=== PATIENT | female | born 1980 | race Caucasian/White ===

== ENCOUNTER 2018-10-23 17:57 | Observation (INO) | payer OTHER ==
[2018-10-23] MEDS ORDERED: ASPIRIN 81 MG CHEWABLE TABLETS PO ONE (18:00)
--- NOTE | 2018-10-23 18:04 | PDOC ---
Rapid Medical Evaluation Chief Complaint: Lightheaded Time Seen by Provider: 10/23/18 17:58 Medical Evaluation: 10/23/18 17:59 c/o chest pain, nausea and dizziness 2 0 minutes prior to arrival. patient reports heaviness in chest with left arm pain. denies OCP use, recent travel, prolonged sitting Pmhx: arrythmia, asthma PE: patient alert ox3. breath sounds clear P; EKG labs chest xray patient to the ER for further maNAGEMENT OF CARE Discharge Disposition - Diagnosis Chest pain Qualifiers: Chest pain type: unspecified Qualified Code(s): R07.9 - Chest pain, unspecified - Referrals - Patient Instructions - Post Discharge Activity
[2018-10-23 18:55] LABS: PH,URINE 6.5 (5.0-8.0); URINE APPEARANCE CLOUDY; URINE BILIRUBIN NEGATIVE (NEGATIVE); URINE COLOR YELLOW; URINE GLUCOSE (UA) NEGATIVE (NEGATIVE); URINE KETONE NEGATIVE (NEGATIVE); URINE LEUK ESTERASE NEGATIVE (NEGATIVE); URINE NITRITE NEGATIVE (NEGATIVE); URINE PROTEIN NEGATIVE (NEGATIVE); URINE UROBILINOGEN 0.2 mg/dL (0.2-1.0)
[2018-10-23 19:29] LABS: ALBUMIN 3.7 g/dl (3.4-5.0); ALK PHOS 82 U/L (45-117); ANION GAP 6 MMOL/L (8-16); BASO % 0.3 % (0-2.0); BILIRUBIN,TOTAL 0.2 mg/dL (0.2-1); BLOOD UREA NITROGEN 12.2 mg/dL (7-18); CALCIUM 9.2 mg/dL (8.5-10.1); CHLORIDE 106 mmol/L (98-107); CO2 27 mmol/L (21-32); CREATININE 0.9 mg/dL (0.55-1.3); GLUCOSE,RANDOM 102 mg/dL (74-106); HEMATOCRIT 40.8 % (32.4-45.2); HEMOGLOBIN 13.8 GM/dL (10.7-15.3); LYMPH % 42.5 % (8-40); MAGNESIUM 2.2 mg/dL (1.8-2.4); MCH 29.1 pg (25.7-33.7); MCHC 33.8 g/dl (32.0-36.0); MEAN PLT VOLUME 7.8 fl (7.5-11.1); NEUT % 49.2 % (42.8-82.8); PLATELET COUNT 354 K/MM3 (134-434); POTASSIUM 3.9 mmol/L (3.5-5.1); RBC 4.75 M/mm3 (3.60-5.2); RDW 13.5 % (11.6-15.6); SGOT/AST 14 U/L (15-37); SGPT/ALT 15 U/L (13-61); SODIUM 139 mmol/L (136-145); TOT PROT 7.3 g/dl (6.4-8.2); WHITE BLOOD COUNT 8.6 K/mm3 (4.0-10.0)
[2018-10-23 19:31] LABS: INR 1.02 (0.83-1.09)
--- NOTE | 2018-10-23 19:31 | PDOC ---
History of Present Illness - General Chief Complaint: Lightheaded Stated Complaint: DIZZY Time Seen by Provider: 10/23/18 17:58 - History of Present Illness Initial Comments: Ms. Ward is a 38 y/o female with PMH significant for arrhythmia (specifics unknown), migraines, asthma, presenting today with vomiting x1 NBNB around noon followed by abdominal tightness, chest tightness that radiates up her neck and to her left arm, migraine-like headache, lightheadedness. Denies pleuritic chest pain. Denies leg swelling. Reports palpitations daily and shortness of breath intermittently both at rest and on exertion. Reports that she recently moved from [place] and is working to [facility]. Was told she needed a stress test but was not able to get it done. Had an echo done over 5 years ago and was told she had problems with blood flow through the heart but is not able to elaborate more. Denies diarrhea, dysuria, hematuria, hematochezia. No fever, no chills. PMH: arrhythmia, migraines, asthma Meds: aspirin, albuterol PRN SurgHx: none FamHx: aunt had MO in late 40s Past History - Past Medical History Allergies/Adverse Reactions: Allergies Allergy/AdvReac Type Severity Reaction Status Date / Time No Known Allergies Allergy Verified 10/23/18 17:59 Home Medications: Ambulatory Orders Albuterol Sulfate [Proair Respiclick] 90 mcg IH PRN PRN 10/23/18 Aspirin [ASA -] 81 mg PO DAILY 10/23/18 Ibuprofen 600 mg PO PRN PRN 10/23/18 COPD: No Psychiatric Problems: Yes (ANXIETY) - Immunization History Immunization Up to Date: Yes - Suicide/Smoking/Psychosocial Hx Smoking History: Current every day smoker Number of Cigarettes Smoked Daily: 2 Information on smoking cessation initiated: No Hx Alcohol Use: No Drug/Substance Use Hx: No Review of Systems - Review of Systems Comments:: GENERAL/CONSTITUTIONAL: No fever or chills. No weakness._ HEAD, EYES, EARS, NOSE AND THROAT: No change in vision. No change in hearing. No sore throat._ CARDIOVASCULAR: Reports chest tightness and shortness of breath. RESPIRATORY: Denies cough, hemoptysis_ GASTROINTESTINAL: Reports nausea and vomiting. Denies diarrhea/constipation. GENITOURINARY: No dysuria, frequency, or change in urination._ MUSCULOSKELETAL: No joint or muscle swelling or pain. Reports neck pain. SKIN: No rash_ NEUROLOGIC: Reports headache and lightheadedness. No vertigo, loss of consciousness, or change in strength/sensation. ENDOCRINE: No increased thirst. No abnormal weight change. HEMATOLOGIC/LYMPHATIC: No anemia, easy bleeding, or history of blood clots._ ALLERGIC/IMMUNOLOGIC: No hives or skin allergy._ *Physical Exam - Vital Signs Last Vital Signs Temp Pulse Resp BP Pulse Ox 98.6 F 91 H 17 121/62 97 10/23/18 18:00 10/23/18 18:00 10/23/18 18:00 10/23/18 18:00 10/23/18 18:00 - Physical Exam Comments: GENERAL: Awake, alert, and oriented to person/place/time, in no acute distress. HEAD: No signs of trauma, normocephalic, atraumatic. EYES: PERRLA, EOMI, sclera anicteric, conjunctiva clear. ENT: Hearing grossly normal, nares patent, oropharynx clear without exudates. No uvular deviation. Moist mucosa. NECK: Normal ROM, supple, no lymphadenopathy, JVD, or masses. LUNGS: No distress, speaks in full sentences, clear to auscultation bilaterally. HEART: regular rate, normal S1 and S2, peripheral pulses normal and equal bilaterally._ ABDOMEN: Soft, nontender, normoactive bowel sounds. No guarding, no rebound. No masses_ EXTREMITIES: Normal inspection, Normal range of motion, no edema. No clubbing or cyanosis_ NEUROLOGICAL: Cranial nerves II through XII grossly intact. Normal speech, normal gait, no focal sensorimotor deficits _ SKIN: Warm, Dry, normal turgor, no rashes or lesions noted. 10/23/18 20:36 Heart Score/ECG Review - History History: Slightly suspicious - Electrocardiogram EKG: Normal - Age Age: </= 45 - Risk Factors Risk Factors Heart Score: Yes Smoking History, Yes Positive family hx of cardiac disease Based on the list above the patient has:: 1-2 risk factors - Troponin Troponin: </= normal limit - Score Heart Score - Total: 1 ED Treatment Course - LABORATORY CBC & Chemistry Diagram: 10/24/18 05:38 10/24/18 05:38 - ADDITIONAL ORDERS Additional order review: Laboratory Results 10/23/18 10/23/18 10/23/18 18:34 18:34 18:34 Sodium 139 Potassium 3.9 Chloride 106 Carbon Dioxide 27 Anion Gap 6 L BUN 12.2 Creatinine 0.9 Est GFR (CKD-EPI)AfAm 92.70 Est GFR (CKD-EPI)NonAf 79.98 Random Glucose 102 Calcium 9.2 Magnesium 2.2 Total Bilirubin 0.2 AST 14 L ALT 15 Alkaline Phosphatase 82 Creatine Kinase 67 Troponin I < 0.02 Total Protein 7.3 Albumin 3.7 Urine Color Yellow Urine Appearance Cloudy Urine pH 6.5 Ur Specific [place] 1.007 L Urine Protein Negative Urine Glucose (UA) Negative Urine Ketones Negative Urine Blood Negative Urine Nitrite Negative Urine Bilirubin Negative Urine Urobilinogen 0.2 Ur Leukocyte Esterase Negative Urine HCG, Qual Negative Medical Decision Making - Medical Decision Making 38F with hx of arrhythmia, asthma, migraines. Today had chest tightness, abdominal tightness, vomiting x1 NBNB, followed by lightheadedness and headache. shortness of breath at rest/on exertion and palpitations intermittently at baseline Plan: CBC, CMP, UA, trop, EKG, CXR. Will give aspirin and fluids. Plan to admit. 10/23/18 20:09 EKG shows NSR, 79 bpm, LVH, no ST elevation/depression, QTc 440. CXR shows no acute intrathoracic process. Trops negative. 10/23/18 21:02 Discussed with the hospitalist who agrees to admit this patient for admission. \ *DC/Admit/Observation/Transfer Diagnosis at time of Disposition: Chest pain Qualifiers: Chest pain type: unspecified Qualified Code(s): R07.9 - Chest pain, unspecified - Discharge Dispostion Condition at time of disposition: Good - Referrals - Patient Instructions - Post Discharge Activity
[2018-10-23] MEDS ORDERED: SODIUM CHLORIDE 1,000 ML IV STA ×2 (19:48→23:58)
[2018-10-23] MEDS ORDERED: ASPIRIN 81 MG CHEWABLE TABLETS ONE (20:06)
[2018-10-23] MEDS ORDERED: RANITIDINE HCL 150 MG TABLET (FP) PO ONE (20:11)
[2018-10-23] MEDS ORDERED: RANITIDINE HCL 150 MG TABLET (FP) ONE (20:18)
--- NOTE | 2018-10-23 20:19 | PDOC ---
Documentation entered by Dennis Tmaayo SCRIBE, acting as scribe for Tristin Aceves MD. Tristin Aceves MD: This documentation has been prepared by the Belkis richter Xhesika, SCRIBE, under my direction and personally reviewed by me in its entirety. I confirm that the documentation accurately reflects all work, treatment, procedures, and medical decision making performed by me. Attending Attestation - Resident Resident Name: Piero Sherwood - ED Attending Attestation I have performed the following: I have examined & evaluated the patient, The case was reviewed & discussed with the resident, I agree w/resident's findings & plan, Exceptions are as noted - HPI HPI: 10/23/18 20:12 The patient is a 38 year old female with a significant PMH of arrhythmia, migraines and asthma who presents to the emergency department with 1 episode of nbnb vomiting after eating lunch. Patient states her symptoms are associated with nausea, lightheadedness, abdominal discomfort, chest tightness and non- radiating left arm pain. Patient states she endorses SOB intermittently at rest and on exertion. Patient reports she intermittently has been endorsing these symptoms for a couple of months. 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 Patient denies any recent travel or long car rides. The patient denies fever, chills, cough, diarrhea and constipation. Denies dysuria, frequency, urgency and hematuria. Allergies: NKDA - Physicial Exam PE: 10/23/18 22:09 Well appearing, NAD, AOx3 Normal WOB RRR, no mrg NFD Agree with detailed exam as documented by resident - Medical Decision Making 10/23/18 22:09 Patient has a hx of arrhythmia, she is not aware of the specific type of arrhythmia Here c/o acutely of nausea, chest heaviness and a recent increase in episodes of self-limited dyspnea and palpitations f/u labs, ekg, cxr admit for monitoring/eval
--- NOTE | 2018-10-23 21:23 | PN ---
Teaching Attending Note Name of Resident: Katerin Barboza ATTENDING PHYSICIAN STATEMENT I saw and evaluated the patient. I reviewed the resident's note and discussed the case with the resident. I agree with the resident's findings and plan as documented. SUBJECTIVE: Patient is a 38 year old woman with a PMH of Unspecified arrhythmia, Tobacco use , Migraines and Asthma who presents to the ER with 1 episode of vomiting after eating lunch. Patient states her symptoms are associated with nausea, lightheadedness, abdominal discomfort, chest tightness and non-radiating left arm pain. Patient states she has SOB intermittently at rest and on exertion. Patient reports she has been having these symptoms intermittently for a couple of months. Does use Ibuprofen often for her headaches. Patient states she had an abnormal ECHO 5 years ago. 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 Patient denies any recent travel or long car rides. The patient denies fever, chills, cough, diarrhea and constipation. Denies dysuria, frequency, urgency and hematuria. Her LMP ended on October 13, 2018. She has a FH of premature CAD, HLD, DM, HTN, gastric and ovarian cancer. OBJECTIVE: Alert Vital Signs Period Temp Pulse Resp BP Sys/[place] Pulse Ox Last 24 Hr 98.2 F-98.6 F 65-91 17-19 103-121/61-73 97-100 HEENT: No Jaundice, eye redness or discharge, PERRLA, EOMI. Normocephalic, atraumatic. External ears are normal and hearing is grossly intact. No nasal discharge. Neck: Supple, nontender. No palpable adenopathy or thyromegaly. No JVD Chest: Good effort. Clear to auscultation and percussion. Heart: Regular. No S3, rub or murmur Abdomen: Not distended, soft, nontender and no HSM. No rebound or guarding. Normal bowel sounds. Ext: Peripheral pulses intact. No leg edema. Skin: Warm and dry. No petechiae, rash or ecchymosis. Neuro: Alert. Oriented x3. CN 2-12 grossly intact. Sensation grossly intact in all four extremities and DTR are symmetric. Psych: Appropriate mood and affect. Good insight. Home Medications Medication Instructions Recorded Albuterol Sulfate [Proair 90 mcg IH PRN PRN 10/23/18 Respiclick] Aspirin [ASA -] 81 mg PO DAILY 10/23/18 Ibuprofen 600 mg PO PRN PRN 10/23/18 Abnormal Lab Results 10/23/18 10/23/18 10/23/18 18:34 18:34 18:34 Lymphocytes % 42.5 H Anion Gap 6 L AST 14 L Ur Specific [place] 1.007 L ASSESSMENT AND PLAN: 1. Chest pain - Pain is atypical, but she has risk factors for CAD. EKG shows NSR with LVH, T wave inversion in aVF, V1 and V2. Initial troponin is negative and there is no acute abnormality on CXR. Will admit to telemetry to rule out ACS, get ECHO, fasting lipids, TSH and consult cardiology. May need outpatient cardiac monitoring to capture the unspecified arrhythmia she says was noted in the past. Symptoms may also signal gastritis associated with NSAID use. Will get abdominal sonogram and treat with protonix. Patient counseled to avoid NSAIDS. Consult GI for possible EGD. Continue comprehensive care of all her comorbid conditions including Duoneb PRN for ashtma. 2. Tobacco Use Counseled on risks associated with tobacco use. We will provide patient all the necessary assistance to facilitate smoking cessation and prescribe Nicotine patch. 3. Obesity Counseled on the risks associated with obesity. Will provide patient all the necessary assistance, counseling and positive reinforcement to facilitate weight loss. Consult underground heavy equipment operator. 4. DVT prophylaxis - Lovenox 40 mg SQ q 24 hours. 5. Advance directives - Full code
[2018-10-23 22:30] VITALS: BMI 33.1
--- NOTE | 2018-10-23 23:19 | HP ---
CHIEF COMPLAINT: chest pain/dizziness/lightheadedness PCP: Dr. Eleni Hicks HISTORY OF PRESENT ILLNESS: Shirlene Ward is a 38 year old female with a past medical history of migraines, asthma, anxiety, unknown arrhythmia type, ovarian cyst, transient HLD during who presented today after an episode of dizziness and lightheadedness while the patient was eating lunch. She felt weak and sat down at which point she felt nauseous and had one episode of non-bloody non-bilious vomiting. She stated that afterwards she had left sided chest pain with radiation to the shoulder and epigastric abdominal pain. Stated that she had total body weakness and headaches and came to the ED for further evaluation. She has had a previous episode similar to the current episode 3 months prior which was less pronounced and she attributed to recent stresses. The patient noted that she has recently started smoking again after a long abstinence and has not been eating well for several months but has had adequate fluid intake. Has frequent headaches which she attributes to her known history of migraines, however current headache is unlike her regular migraines. Takes ibuprofen 600mg 2 times a month for headaches and states that she tries to limit NSAID intake due to gastric upset. Stated that sometimes she wakes up and feels palpitations and short of breath and is currently being worked up for [facility] outpatient. Denies fever, chills, shortness of breath, back pain, peripheral edema, numbness , tingling, focal weakness, visual changes, tinnitus, dysphagia. Recently moved back to [place] from [place] and is reestablishing care. Unsure of what her previous arrhythmia is. Records are located at current PCP office. LMP: ended October 13 HCG negative ER course was notable for: (1) EKG T wave inversion in leads III, V1, V2, NSR, QTc 440 (2) Orthostatics supine 113/61 HR 63 sitting 108/51 HR 70 standing 65/39 HR 76 repeat sitting 120/59 standing 100/69 (3) given aspirin 162mg, Zantac 300mg, NS1L Recent Travel: denies PAST MEDICAL HISTORY: as above PAST SURGICAL HISTORY: denies Social History: Smokin cigarettes per day Alcohol: denies Drugs: denies Lives with son Family History: Mother- gastric cancer Sister- ovarian cancer Aunt- [place] in 40s Aunt- DM, HTN, HLD Allergies No Known Allergies Allergy (Verified 10/23/18 17:59) HOME MEDICATIONS: Home Medications Medication Instructions Recorded Albuterol Sulfate [Proair 90 mcg IH PRN PRN 10/23/18 Respiclick] Aspirin [ASA -] 81 mg PO DAILY 10/23/18 Ibuprofen 600 mg PO PRN PRN 10/23/18 REVIEW OF SYSTEMS CONSTITUTIONAL: generalized weakness Absent: fever, chills, diaphoresis, , malaise, loss of appetite, weight change HEENT: Absent: rhinorrhea, nasal congestion, throat pain, throat swelling, difficulty swallowing, visual changes CARDIOVASCULAR: chest pain, lightheadedness Absent: syncope, palpitations, irregular heart rate, peripheral edema RESPIRATORY: Absent: cough, shortness of breath, dyspnea with exertion, orthopnea, wheezing, stridor, GASTROINTESTINAL: abdominal pain, nausea, vomiting Absent: abdominal distension, diarrhea, constipation, melena, hematochezia GENITOURINARY: Absent: dysuria, frequency, urgency, hesitancy, hematuria, flank pain, MUSCULOSKELETAL: Absent: myalgia, arthralgia, joint swelling, back pain, SKIN: Absent: rash, itching, pallor HEMATOLOGIC/IMMUNOLOGIC: Absent: easy bleeding, easy bruising, lymphadenopathy, frequent infections ENDOCRINE: Absent: unexplained weight gain, unexplained weight loss, heat intolerance, cold intolerance NEUROLOGIC: headache, dizziness Absent: focal weakness or paresthesias, unsteady gait, seizure, mental status changes, bladder or bowel incontinence PSYCHIATRIC: anxiety Absent: depression, suicidal or homicidal ideation, hallucinations. PHYSICAL EXAMINATION Vital Signs - 24 hr 10/23/18 10/23/18 10/23/18 18:00 19:40 20:07 Temperature 98.6 F 98.4 F 98.6 F Pulse Rate 91 H 65 Pulse Rate [ 76 Left Apical] Respiratory 17 19 18 Rate Blood Pressure 121/62 113/61 Blood Pressure 103/73 [Right Arm] O2 Sat by Pulse 97 100 97 Oximetry (%) 10/23/18 21:21 Temperature 98.2 F Pulse Rate Pulse Rate [ 70 Left Apical] Respiratory 18 Rate Blood Pressure Blood Pressure 120/68 [Right Arm] O2 Sat by Pulse 100 Oximetry (%) GENERAL: Awake, alert, and fully oriented, in no acute distress. HEAD: Normal with no signs of trauma. EYES: Pupils equal, round and reactive to light, extraocular movements intact, sclera anicteric, conjunctiva clear. EARS, NOSE, THROAT: Oropharynx clear without exudates. Moist mucous membranes. NECK: Normal range of motion, supple without lymphadenopathy, JVD, or masses. LUNGS: Breath sounds equal, clear to auscultation bilaterally. No wheezes, and no crackles. No accessory muscle use. HEART: Regular rate and rhythm, normal S1 and S2 without murmur, rub or gallop. ABDOMEN: Soft, nontender, not distended, normoactive bowel sounds, no guarding, no rebound, no masses. MUSCULOSKELETAL: Normal range of motion at all joints. No bony deformities or tenderness. UPPER EXTREMITIES: 2+ pulses, warm, well-perfused. No cyanosis. No clubbing. No peripheral edema. LOWER EXTREMITIES: 2+ pulses, warm, well-perfused. No calf tenderness. No peripheral edema. NEUROLOGICAL: Cranial nerves II-XII intact. Muscle strength 5/5 bilaterally upper and lower extremities.. PSYCHIATRIC: Cooperative. Good eye contact. Appropriate mood and affect. SKIN: Warm, dry, normal turgor, no rashes or lesions noted, normal capillary refill. Laboratory Results - last 24 hr 10/23/18 10/23/18 10/23/18 18:34 18:34 18:34 WBC 8.6 RBC 4.75 Hgb 13.8 Hct 40.8 MCV 86.0 MCH 29.1 MCHC 33.8 RDW 13.5 Plt Count 354 MPV 7.8 Absolute Neuts (auto) 4.2 Neutrophils % 49.2 Lymphocytes % 42.5 H Monocytes % 6.0 Eosinophils % 2.0 Basophils % 0.3 Nucleated RBC % 0 PT with INR INR Sodium 139 Potassium 3.9 Chloride 106 Carbon Dioxide 27 Anion Gap 6 L BUN 12.2 Creatinine 0.9 Est GFR (CKD-EPI)AfAm 92.70 Est GFR (CKD-EPI)NonAf 79.98 Random Glucose 102 Calcium 9.2 Magnesium 2.2 Total Bilirubin 0.2 AST 14 L ALT 15 Alkaline Phosphatase 82 Creatine Kinase 67 Troponin I < 0.02 Total Protein 7.3 Albumin 3.7 Urine Color Urine Appearance Urine pH Ur Specific [place] Urine Protein Urine Glucose (UA) Urine Ketones Urine Blood Urine Nitrite Urine Bilirubin Urine Urobilinogen Ur Leukocyte Esterase Urine HCG, Qual Negative 10/23/18 10/23/18 18:34 18:34 WBC RBC Hgb Hct MCV MCH MCHC RDW Plt Count MPV Absolute Neuts (auto) Neutrophils % Lymphocytes % Monocytes % Eosinophils % Basophils % Nucleated RBC % PT with INR 12.00 INR 1.02 Sodium Potassium Chloride Carbon Dioxide Anion Gap BUN Creatinine Est GFR (CKD-EPI)AfAm Est GFR (CKD-EPI)NonAf Random Glucose Calcium Magnesium Total Bilirubin AST ALT Alkaline Phosphatase Creatine Kinase Troponin I Total Protein Albumin Urine Color Yellow Urine Appearance Cloudy Urine pH 6.5 Ur Specific [place] 1.007 L Urine Protein Negative Urine Glucose (UA) Negative Urine Ketones Negative Urine Blood Negative Urine Nitrite Negative Urine Bilirubin Negative Urine Urobilinogen 0.2 Ur Leukocyte Esterase Negative Urine HCG, Qual EKG--> NSR, T wave inversion in leads III, V1, V2, QTc 440 ASSESSMENT/PLAN: Shirlene Ward is a 38 year old female with a past medical history of migraines, asthma, anxiety, unknown arrhythmia type, ovarian cyst, transient HLD during admitted under observation for ACS rule out and dizziness symptoms. Chest Pain/Dizziness Abdominal Pain Asthma Tobacco Use Chest Pain/Dizziness - atypical chest pain in setting of poor oral intake, NSAID use, however has risk factors and strong family and social history - 2 negative troponins, repeat in morning - A1c - lipid profile - TSH - Echo - carotid dopplers - cardiology consultation - may need Holter monitoring with hx of unknown arrhythmia - adequate outpatient f/u for atypical chest pain - orthostatics positive, additional bolus 1L NS given, encourage PO intake Abdominal Pain - in setting of family history, NSAID use, smoking has high risks for ulcers and other gastric pathology - given Zantac in ED - Abd U/s - GI consult, evaluate need for EGD inpatient vs outpatient - Protonix 20mg PO - avoid NSAIDS, can use Tylenol and Reglan for migraines Asthma - Duoneb prn Tobacco Use - encourage abstinence in setting of medical comorbidities - nicotine patch prn FEN - 1L bolus given on floor, can hold off on additional fluids, reevaluate if any vital sign derangements present - continue to monitor for electrolytes abnormalities and replete as necessary - Regular diet Prophylaxis - Lovenox 40mg subq daily - early ambulation Code - full code ARMIDA NAYLOR DO - PGY-1 Visit type - Emergency Visit Emergency Visit: Yes ED Registration Date: 10/23/18 Care time: The patient presented to the Emergency Department on the above date and was hospitalized for further evaluation of their emergent condition. - New Patient This patient is new to me today: Yes Date on this admission: 10/24/18 - Critical Care Critical Care patient: No
[2018-10-23] MEDS ORDERED: ALBUTEROL SO4 2.5/IPRATROPIUM 0.5 INH SOL 3 ML VIAL.NEB. NEB PRN ×2 (23:26→23:30)
[2018-10-24] MEDS: NICOTINE 7 MG/24 HOURS TOPICAL PATCH TD SCH ×3 (02:26→14:54)
[2018-10-24 08:06] LABS: HEMATOCRIT 36.9 % (32.4-45.2); HEMOGLOBIN 12.8 GM/dL (10.7-15.3); MCH 29.7 pg (25.7-33.7); MCHC 34.5 g/dl (32.0-36.0); MEAN CELL VOLUME 85.9 fl (80-96); MEAN PLT VOLUME 7.7 fl (7.5-11.1); PLATELET COUNT 335 K/MM3 (134-434); RDW 13.3 % (11.6-15.6); WHITE BLOOD COUNT 6.6 K/mm3 (4.0-10.0)
--- NOTE | 2018-10-24 08:18 | PN ---
Physical Exam: SUBJECTIVE: Patient seen and examined at bedside. Pt feels well at this time. OBJECTIVE: Vital Signs Period Temp Pulse Resp BP Sys/Rutherford Pulse Ox Last 24 Hr 97.6 F-98.6 F 59-91 17-19 98-121/57-73 97-100 Gen: Comfortable HEENT: NCAT, EOMI, PERRL Neck: supple, no jvd Cardio: rrr, normal s1s2, no mrg Pulm: cta b/l Abd: soft, nontender, nondistended Ext: no edema, 2+ pulses Laboratory Results - last 24 hr 10/23/18 10/23/18 10/23/18 18:34 18:34 18:34 WBC 8.6 RBC 4.75 Hgb 13.8 Hct 40.8 MCV 86.0 MCH 29.1 MCHC 33.8 RDW 13.5 Plt Count 354 MPV 7.8 Absolute Neuts (auto) 4.2 Neutrophils % 49.2 Lymphocytes % 42.5 H Monocytes % 6.0 Eosinophils % 2.0 Basophils % 0.3 Nucleated RBC % 0 PT with INR INR Sodium 139 Potassium 3.9 Chloride 106 Carbon Dioxide 27 Anion Gap 6 L BUN 12.2 Creatinine 0.9 Est GFR (CKD-EPI)AfAm 92.70 Est GFR (CKD-EPI)NonAf 79.98 Random Glucose 102 Hemoglobin A1c % Calcium 9.2 Magnesium 2.2 Total Bilirubin 0.2 AST 14 L ALT 15 Alkaline Phosphatase 82 Creatine Kinase 67 Troponin I < 0.02 Total Protein 7.3 Albumin 3.7 Urine Color Urine Appearance Urine pH Ur Specific [place] Urine Protein Urine Glucose (UA) Urine Ketones Urine Blood Urine Nitrite Urine Bilirubin Urine Urobilinogen Ur Leukocyte Esterase Urine HCG, Qual Negative 10/23/18 10/23/18 10/23/18 18:34 18:34 23:00 WBC RBC Hgb Hct MCV MCH MCHC RDW Plt Count MPV Absolute Neuts (auto) Neutrophils % Lymphocytes % Monocytes % Eosinophils % Basophils % Nucleated RBC % PT with INR 12.00 INR 1.02 Sodium Potassium Chloride Carbon Dioxide Anion Gap BUN Creatinine Est GFR (CKD-EPI)AfAm Est GFR (CKD-EPI)NonAf Random Glucose Hemoglobin A1c % Calcium Magnesium Total Bilirubin AST ALT Alkaline Phosphatase Creatine Kinase Troponin I < 0.02 Total Protein Albumin Urine Color Yellow Urine Appearance Cloudy Urine pH 6.5 Ur Specific [place] 1.007 L Urine Protein Negative Urine Glucose (UA) Negative Urine Ketones Negative Urine Blood Negative Urine Nitrite Negative Urine Bilirubin Negative Urine Urobilinogen 0.2 Ur Leukocyte Esterase Negative Urine HCG, Qual 10/24/18 05:38 WBC RBC Hgb Hct MCV MCH MCHC RDW Plt Count MPV Absolute Neuts (auto) Neutrophils % Lymphocytes % Monocytes % Eosinophils % Basophils % Nucleated RBC % PT with INR INR Sodium Potassium Chloride Carbon Dioxide Anion Gap BUN Creatinine Est GFR (CKD-EPI)AfAm Est GFR (CKD-EPI)NonAf Random Glucose Hemoglobin A1c % 5.2 Calcium Magnesium Total Bilirubin AST ALT Alkaline Phosphatase Creatine Kinase Troponin I Total Protein Albumin Urine Color Urine Appearance Urine pH Ur Specific [place] Urine Protein Urine Glucose (UA) Urine Ketones Urine Blood Urine Nitrite Urine Bilirubin Urine Urobilinogen Ur Leukocyte Esterase Urine HCG, Qual Active Medications Generic Name Dose Route Start Last Admin Trade Name Freq PRN Reason Stop Dose Admin Albuterol/Ipratropium 1 amp 10/23/18 23:30 Duoneb - NEB RQID PRN SHORT OF BREATH/WHEEZING Enoxaparin Sodium 40 mg 10/24/18 10:00 Lovenox - SQ DAILY [facility] Nicotine 7 mg 10/23/18 23:47 10/24/18 02:26 Nicoderm Patch - TD Not Given DAILY [facility] Pantoprazole Sodium 20 mg 10/24/18 10:00 Protonix - PO DAILY [facility] Active Medications Albuterol/Ipratropium (Duoneb -) 1 amp NEB RQID PRN PRN Reason: SHORT OF BREATH/WHEEZING Enoxaparin Sodium (Lovenox -) 40 mg SQ DAILY [facility] Nicotine (Nicoderm Patch -) 7 mg TD DAILY [facility] Last Admin: 10/24/18 02:26 Dose: Not Given Pantoprazole Sodium (Protonix -) 20 mg PO DAILY [facility] ASSESSMENT/PLAN: Shirlene Ward is a 38 year old female with a past medical history of migraines, asthma, anxiety, unknown arrhythmia type, ovarian cyst, transient HLD during admitted under observation for ACS rule out and dizziness symptoms. #Chest Pain/Dizziness - atypical chest pain in setting of poor oral intake, NSAID use, however has risk factors and strong family and social history - troponins neg x 3 - TSH normal - Echo unremarkable - carotid dopplers normal - cardiology consultation requests records - orthostatics positive, additional bolus 1L NS given, encourage PO intake Abdominal Pain - in setting of family history, NSAID use, smoking has high risks for ulcers and other gastric pathology - given Zantac in ED - Abd U/s result pending - GI consult, evaluate need for EGD inpatient vs outpatient - Protonix 20mg PO - avoid NSAIDS, can use Tylenol and Reglan for migraines Asthma - Duoneb prn Tobacco Use - encourage abstinence in setting of medical comorbidities - nicotine patch prn FEN - 1L bolus given on floor, can hold off on additional fluids, reevaluate if any vital sign derangements present - continue to monitor for electrolytes abnormalities and replete as necessary - Regular diet Prophylaxis - Lovenox 40mg subq daily - early ambulation Code - full code Visit type - Emergency Visit Emergency Visit: No - New Patient This patient is new to me today: No - Critical Care Critical Care patient: No ATTENDING PHYSICIAN STATEMENT I saw and evaluated the patient. I reviewed the resident's note and discussed the case with the resident. I agree with the resident's findings and plan as documented. SUBJECTIVE: OBJECTIVE: ASSESSMENT AND PLAN:
[2018-10-24 08:41] LABS: ALBUMIN 3.3 g/dl (3.4-5.0); BILIRUBIN,TOTAL 0.4 mg/dL (0.2-1); CALCIUM 8.2 mg/dL (8.5-10.1); CREATININE 0.6 mg/dL (0.55-1.3); TOT PROT 6.3 g/dl (6.4-8.2)
[2018-10-24] MEDS ORDERED: REGADENOSON 0.4 MG/5 ML PRE-FILLED SYRINGE IVPUSH ONE ×2 (09:56→10:00)
--- NOTE | 2018-10-24 10:02 | PN ---
Teaching Attending Note Name of Resident: Angel Kaur ATTENDING PHYSICIAN STATEMENT I saw and evaluated the patient. I reviewed the resident's note and discussed the case with the resident. I agree with the resident's findings and plan as documented with exceptions below. SUBJECTIVE: Patient seen and examined, reports left sided migrainous headaches (known prior history). No chest pain, palpitations, dizziness, dyspnea, abdominal pain or vomiting noted. OBJECTIVE: Vital Signs Period Temp Pulse Resp BP Sys/Rutherford Pulse Ox Last 24 Hr 97.6 F-98.6 F 59-91 17-20 98-121/57-73 97-100 Intake & Output 10/21/18 10/22/18 10/23/18 10/24/18 23:59 23:59 23:59 23:59 Intake Total 480 1000 Balance 480 1000 Weight 187 lb 3.2 oz General: lying in bed in no acute distress neck: soft, supple, no JVD Chest: CTAB, no rales or wheezing CVS:S1s2 regular Telemetry: NSR, no events noted Abdomen:soft, obese, NTthroughout Extremities: no edema Home Medications Medication Instructions Recorded Albuterol Sulfate [Proair 90 mcg IH PRN PRN 10/23/18 Respiclick] Aspirin [ASA -] 81 mg PO DAILY 10/23/18 Ibuprofen 600 mg PO PRN PRN 10/23/18 Active Medications Albuterol/Ipratropium (Duoneb -) 1 amp NEB RQID PRN PRN Reason: SHORT OF BREATH/WHEEZING Enoxaparin Sodium (Lovenox -) 40 mg SQ DAILY [facility] Nicotine (Nicoderm Patch -) 7 mg TD DAILY [facility] Last Admin: 10/24/18 02:26 Dose: Not Given Pantoprazole Sodium (Protonix -) 20 mg PO DAILY [facility] Laboratory Results - last 24 hr 10/23/18 10/23/18 10/23/18 18:34 18:34 18:34 WBC 8.6 RBC 4.75 Hgb 13.8 Hct 40.8 MCV 86.0 MCH 29.1 MCHC 33.8 RDW 13.5 Plt Count 354 MPV 7.8 Absolute Neuts (auto) 4.2 Neutrophils % 49.2 Lymphocytes % 42.5 H Monocytes % 6.0 Eosinophils % 2.0 Basophils % 0.3 Nucleated RBC % 0 PT with INR INR Sodium 139 Potassium 3.9 Chloride 106 Carbon Dioxide 27 Anion Gap 6 L BUN 12.2 Creatinine 0.9 Est GFR (CKD-EPI)AfAm 92.70 Est GFR (CKD-EPI)NonAf 79.98 Random Glucose 102 Hemoglobin A1c % Calcium 9.2 Magnesium 2.2 Total Bilirubin 0.2 AST 14 L ALT 15 Alkaline Phosphatase 82 Creatine Kinase 67 Troponin I < 0.02 Total Protein 7.3 Albumin 3.7 Triglycerides Cholesterol Total LDL Cholesterol HDL Cholesterol TSH Urine Color Urine Appearance Urine pH Ur Specific [place] Urine Protein Urine Glucose (UA) Urine Ketones Urine Blood Urine Nitrite Urine Bilirubin Urine Urobilinogen Ur Leukocyte Esterase Urine HCG, Qual Negative 10/23/18 10/23/18 10/23/18 18:34 18:34 23:00 WBC RBC Hgb Hct MCV MCH MCHC RDW Plt Count MPV Absolute Neuts (auto) Neutrophils % Lymphocytes % Monocytes % Eosinophils % Basophils % Nucleated RBC % PT with INR 12.00 INR 1.02 Sodium Potassium Chloride Carbon Dioxide Anion Gap BUN Creatinine Est GFR (CKD-EPI)AfAm Est GFR (CKD-EPI)NonAf Random Glucose Hemoglobin A1c % Calcium Magnesium Total Bilirubin AST ALT Alkaline Phosphatase Creatine Kinase Troponin I < 0.02 Total Protein Albumin Triglycerides Cholesterol Total LDL Cholesterol HDL Cholesterol TSH Urine Color Yellow Urine Appearance Cloudy Urine pH 6.5 Ur Specific [place] 1.007 L Urine Protein Negative Urine Glucose (UA) Negative Urine Ketones Negative Urine Blood Negative Urine Nitrite Negative Urine Bilirubin Negative Urine Urobilinogen 0.2 Ur Leukocyte Esterase Negative Urine HCG, Qual 10/24/18 10/24/18 10/24/18 05:38 05:38 05:38 WBC 6.6 RBC 4.30 Hgb 12.8 Hct 36.9 MCV 85.9 MCH 29.7 MCHC 34.5 RDW 13.3 Plt Count 335 MPV 7.7 Absolute Neuts (auto) Neutrophils % Lymphocytes % Monocytes % Eosinophils % Basophils % Nucleated RBC % PT with INR INR Sodium 140 Potassium 4.0 Chloride 109 H Carbon Dioxide 26 Anion Gap 5 L BUN 12.0 Creatinine 0.6 Est GFR (CKD-EPI)AfAm 132.14 Est GFR (CKD-EPI)NonAf 114.01 Random Glucose 79 Hemoglobin A1c % 5.2 Calcium 8.2 L Magnesium 2.0 Total Bilirubin 0.4 AST 12 L ALT 12 L Alkaline Phosphatase 73 Creatine Kinase Troponin I Total Protein 6.3 L Albumin 3.3 L Triglycerides 99 Cholesterol 152 Total LDL Cholesterol 97 HDL Cholesterol 38 L TSH 3.74 Urine Color Urine Appearance Urine pH Ur Specific [place] Urine Protein Urine Glucose (UA) Urine Ketones Urine Blood Urine Nitrite Urine Bilirubin Urine Urobilinogen Ur Leukocyte Esterase Urine HCG, Qual 10/24/18 05:38 WBC RBC Hgb Hct MCV MCH MCHC RDW Plt Count MPV Absolute Neuts (auto) Neutrophils % Lymphocytes % Monocytes % Eosinophils % Basophils % Nucleated RBC % PT with INR INR Sodium Potassium Chloride Carbon Dioxide Anion Gap BUN Creatinine Est GFR (CKD-EPI)AfAm Est GFR (CKD-EPI)NonAf Random Glucose Hemoglobin A1c % Calcium Magnesium Total Bilirubin AST ALT Alkaline Phosphatase Creatine Kinase Troponin I < 0.02 Total Protein Albumin Triglycerides Cholesterol Total LDL Cholesterol HDL Cholesterol TSH Urine Color Urine Appearance Urine pH Ur Specific [place] Urine Protein Urine Glucose (UA) Urine Ketones Urine Blood Urine Nitrite Urine Bilirubin Urine Urobilinogen Ur Leukocyte Esterase Urine HCG, Qual ASSESSMENT AND PLAN: 38 yof with PMhx of ?arrhythmia, Migrainous headaches, tobaccco use, asthma admitted with episode of abdominal pain, followed by vomiting, dizziness, left sided chest pain radiating to shoulder -Dizziness r/o arrhythmia -Chest pain, r/o cardiac given risk factors -Abdominal pain/Vomiting x 1, ?GERD/PUD in the setting NSAIDs use -Migrainous headaches -Nicotine dependence -Mild intermittent asthma Plan: Patient reports prior h/o ?arrhythmia, reports having holter monitoring x 2 in the past, was told has "arrhythmia" unsure of details, on no medications. TSH noted, follow up 2D echo. Stress test for risk stratification, lipid panel noted. Follow up cardiology input. Patient advised to avoid NSAIDs, PPI for now, Abdominal US. Follow up GI recs, h /h stable. FOBT. Anticipate outpatient follow up if no concerns inhouse. albuterol prn. DVTPPX lovenox Dispo pending above w/u Discussed with patient and nursing.
--- NOTE | 2018-10-24 10:04 | CON.CARD ---
Consult Consult Specialty:: Cardiology Referred by:: Dr. Beck Reason for Consultation:: chest pain - History of Present Illness Chief Complaint: chest pain History of Present Illness: 38F, smoker, w mild intermittent asthma, h/o gestational HTN (resolved) presents to ER for eval for episode substernal CP at rest. Under significant "stress"- pt would not elaborate further. Denies N/V/diaphoresis. Typically, does not have exertional CP. Denies recent prolonged air/car travel. No early fam hx CAD. No fam hx VTE. Pain was "tightness", non-radiating. No wheezing, did not feel like her usual asthma. Of note, she was diagnosed with a "cardiac arrhythmia" about 5 years ago at outside hospital (details unclear) and was told to take low dose aspirin daily. Cardiac enzymes are negative serially; ECG NSR w/ inc RBBB. No acute ST changes. 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: Alzheimer's, CVA, Dementia, Migraine, Multiple Sclerosis, Peripheral Neuropathy, Parkinson's, Seizure, Syncope, TIA, Vertigo, Other Cardio/Vascular: No: AFIB, Aneurysm, Aortic Insufficiency, Aortic Stenosis, CAD , CHF, Deep Vein Thrombosis, HTN, Hyperlipdemia, MD, Mitral Insufficiency, Mitral Stenosis, Murmur, Pulmonary Hypertension, Other Pulmonary: Yes: Asthma Gastrointestinal: No: Ascites, Cancer, Constipation, Crohn's Disease, Diverticulitis, Diverticulosis, Esophageal Varices, Gastritis, GERD, GI Bleed, Hemorrhoids, Hiatal Hernia, Inflamatory Bowel Disease, Irritable Bowel Disease, Pancreatitis, Peptic Ulcer Disease, Ulcerative Colitis, Other Hepatobiliary: No: Cirrhosis, Cholelithiasis, Cholecystitis, Choledocholithiasis , Hepatitis A, Hepatitis B, Hepatitis C, Other Renal/: No: Renal Failure, Renal Inusuff, BPH, Cancer, Hematuria, Hemodialysis , Neurogenic Bladder, Renal Calculi, UTI, Other Reproductive: No: Ectopic , Endometriosis, Fibroids, PID, Polycystic Ovary Syndrome, Postmenopausal, Other ...LMP: 10/13/18 ...: No Heme/Onc: No: Anemia, B12 Deficiency, Bleeding Disorder, Cancer, Current Chemotherapy, Current Radiation Therapy, Hemochromatosis, Hypercoaguable State, Myeloproliferative Synd, Sickle Cell Disease, Sickle Cell Trait, Thrombocytopenia, Other Infectious Disease: No: AIDS, C-Diff, Herpes Zoster, HIV, MRSA, STD's, Tuberculosis, VREF, Other Psych: No: Addictions, Anxiety, Bipolar, Depression, Panic, Psychosis, Schizophrenia, Other Musculoskeletal: No: Bursitis, Chronic low back pain, Hemiparesis, Hemiplegia, Osteoarthritis, Paraplegia, Other Rheumatology: No: Fibromyalgia, Gout, Lupus, Rheumatoid Arthritis, Sarcoidosis, Vasculitis, Other ENT: No: Allergic Rhinitis, Sinusitis, Other Endocrine: No: Montez's Disease, Huron's Disease, Diabetes Insipidus, Diabetes Mellitus, Hyperparathyroidism, Hyperthyroidism, Hypothyroidism, Osteopenia, SIADH, Other Dermatology: No: Basal Cell, Cellulitis, Eczema, Melanoma, Psoriasis, Squamous Cell, Other - Alcohol/Substance Use Hx Alcohol Use: No - Smoking History Smoking history: Current every day smoker Aproximately how many cigarettes per day: 2 - Social History History of Recent Travel: No Home Medications - Allergies Allergies/Adverse Reactions: Allergies Allergy/AdvReac Type Severity Reaction Status Date / Time No Known Allergies Allergy Verified 10/23/18 17:59 - Home Medications Home Medications: Ambulatory Orders Albuterol Sulfate [Proair Respiclick] 90 mcg IH PRN PRN 10/23/18 Aspirin [ASA -] 81 mg PO DAILY 10/23/18 Ibuprofen 600 mg PO PRN PRN 10/23/18 Family Disease History - Family Disease History Family History: Unremarkable (no early CAD or VTE) Review of Systems - Review of Systems Constitutional: reports: No Symptoms Eyes: reports: No Symptoms HENT: reports: No Symptoms Neck: reports: No Symptoms Cardiovascular: reports: Chest Pain Respiratory: reports: No Symptoms Gastrointestinal: reports: No Symptoms Genitourinary: reports: No Symptoms Breasts: reports: No Symptoms Reported Musculoskeletal: reports: No Symptoms Integumentary: reports: No Symptoms Neurological: reports: No Symptoms Endocrine: reports: No Symptoms Hematology/Lymphatic: reports: No Symptoms Psychiatric: reports: No Symptoms - Risk Factors Known Risk Factors: Yes: Smoking Vital Signs: Vital Signs Temperature 98.5 F 10/24/18 09:39 Pulse Rate 66 10/24/18 09:39 Respiratory Rate 20 10/24/18 09:39 Blood Pressure 107/73 10/24/18 09:39 O2 Sat by Pulse Oximetry (%) 99 10/24/18 09:00 Constitutional: Yes: No Distress, Calm Eyes: Yes: Conjunctiva Clear, EOM Intact HENT: Yes: Atraumatic, Normocephalic Neck: Yes: Supple, Trachea Midline Respiratory: Yes: CTA Bilaterally (no rales or active wheezing) Gastrointestinal: Yes: Soft, Abdomen, Obese Cardiovascular: Yes: Regular Rate and Rhythm JVD: No Carotid Bruit: No PMI: Non-Displaced Heart Sounds: Yes: S1, S2 (RRR, no M/R/G) Edema: No Neurological: Yes: Alert, Oriented - Other Data Labs, Other Data: CBC, BMP 10/24/18 05:38 10/24/18 05:38 INR, PTT INR 1.02 (0.83-1.09) 10/23/18 18:34 Troponin, BNP 10/23/18 10/23/18 10/24/18 18:34 23:00 05:38 Troponin I < 0.02 < 0.02 < 0.02 Troponin, BNP 10/23/18 10/23/18 10/24/18 18:34 23:00 05:38 Troponin I < 0.02 < 0.02 < 0.02 NSR inc RBBB, no acute ST changes Echo: Pending Imaging - Results X-ray: Report Reviewed, Image Reviewed EKG: Image Reviewed Assessment/Plan IMP: 1. Atypical CP: no acute ECG findings, nl O2 saturation, negative CXR 2. H/o cardiac arrhythmia, unknown type 3. Chronic mild intermittent asthma 4. + Cigs REC: 1. 24 hours tele r/o arrhythmia. Helpful to obtain old records to clarify the arrhythmia dx; if tele is WNL here, this can be settled as outpatient. 2. For echo and stress test today for further risk stratification, further reccs to follow. 3. Advised re. complete smoking cessation
--- NOTE | 2018-10-24 10:22 | ECHO ---
Name: ROBB VALENTIN Exam:Adult Echocardiogram Study Date: 10/24/2018 08:47 AM Age: 38 yrs Reason For Study: Dizziness and Lightheaded Height: 63 in Weight: 187 lb BSA: 1.9 m2 MMode/2D Measurements & Calculations IVSd: 0.85 cm ACS: 2.0 cm LVIDd: 3.6 cm LVIDs: 2.5 cm LVPWd: 1.4 cm EDV(Teich): 54.0 ml LVOT diam: 1.9 cm ESV(Teich): 23.0 ml RV S Alex: 10.7 cm/sec Doppler Measurements & Calculations MV E max alex: 78.6 cm/sec MV A max alex: 69.8 cm/sec MV dec slope: 297.4 cm/sec2 MV E/A: 1.1 Ao V2 max: 132.5 cm/sec LV V1 max P.9 mmHg Ao max P.0 mmHg LV V1 mean P.1 mmHg Ao V2 mean: 93.2 cm/sec LV V1 max: 99.0 cm/sec Ao mean P.9 mmHg LV V1 mean: 67.8 cm/sec Ao V2 VTI: 33.2 cm LV V1 VTI: 24.1 cm NIKA(I,D): 2.1 cm2 NIKA(V,D): 2.1 cm2 SV(LVOT): 69.0 ml TR max alex: 222.6 cm/sec TR max P.8 mmHg Med Peak E' Alex: 7.2 cm/sec Med E/e': 10.9 Lat Peak E' Alex: 7.9 cm/sec Lat E/e': 9.9 Left Ventricle Left ventricular systolic function is normal. Ejection Fraction = 55-60%. The transmitral spectral Do ppler flow pattern is normal for age. Right Ventricle The right ventricle is normal in size and function. Atria Normal left and right atrial size and function. Mitral Valve The mitral valve is normal in structure and function. There is no mitral valve stenosis. There is no mitral regurgitation noted. Tricuspid Valve The tricuspid valve is normal in structure and function. There is trace tricuspid regurgitation. Aortic Valve The aortic valve opens well. No hemodynamically significant valvular aortic stenosis. No aortic regur gitation is present. Pulmonic Valve The pulmonic valve is normal in structure and function. There is no pulmonic valvular stenosis. Trace pulmonic valvular regurgitation. Great Vessels The aortic root is normal size. Pericardium/Pleura There is no pericardial effusion. Interpretation Summary Left ventricular systolic function is normal. Ejection Fraction = 55-60%. The right ventricle is normal in size and function. There is trace tricuspid regurgitation. There is no pericardial effusion. MD Singh *Daryl 10/24/2018 10:22 AM
[2018-10-24] MEDS: ENOXAPARIN NA (PORCINE) 40 MG/0.4 ML DISP.SYRIN SQ SCH ×2 (14:50→15:00)
[2018-10-24] MEDS: PANTOPRAZOLE 20 MG TABLET (FP) PO SCH (14:51)
--- NOTE | 2018-10-24 15:04 | CON.GI ---
Consult Consult Specialty:: GI Referred by:: Hospitalist Service Reason for Consultation:: Family history of gastric cancer - History of Present Illness Chief Complaint: Dizziness (head spinning), chest pressure, nausea, vomiting History of Present Illness: 38F admitted through [facility] for evaluation of a constellation of symptoms. She was eating a wrap yesterday and while eating, developed dizziness (head spinning ), chest pressure like "someone sitting on her chest", pressure in her head. She developed abdominal pain as well and vomited. She states having a history of migraines. She ate scrambled eggs today without abdominal pain, further N/V or abdominal pain. She denies associated diarrhea, fevers/chills, unintentional weight loss or early satiety and just returned from a stress test. Abdominal US revealed fatty liver and gallbladder free of gallstones. She says that her mother of stomach cancer in her 20's. There is no family history of colon cancer. She takes ? ASA 81mg and ibuprofen frequently. - History Source History Provided By: Patient, Medical Record Limitations to Obtaining History: No Limitations - Past Medical History CASINO WORKER: Yes: Migraine Cardio/Vascular: Yes: Other ("arrhythmia") Pulmonary: Yes: Asthma ...LMP: 10/13/18 ...: No - Past Surgical History Additional Surgical History: Denies - Alcohol/Substance Use Hx Alcohol Use: No - Smoking History Smoking history: Current every day smoker Aproximately how many cigarettes per day: 2 - Social History Usual Living Arrangement: Alone ADL: Independent Place of : Other ([place]) Came to [place] (year): age 6 months History of Recent Travel: No Home Medications - Allergies Allergies/Adverse Reactions: Allergies Allergy/AdvReac Type Severity Reaction Status Date / Time No Known Allergies Allergy Verified 10/23/18 17:59 - Home Medications Home Medications: Ambulatory Orders Albuterol Sulfate [Proair Respiclick] 90 mcg IH PRN PRN 10/23/18 Aspirin [ASA -] 81 mg PO DAILY 10/23/18 Ibuprofen 600 mg PO PRN PRN 10/23/18 Family Disease History - Family Disease History Family Disease History: Other: Father (did not know him), Mother (: age 24: stomach cancer), Sister (1, ovarian cancer), Son (2, 1 with autism) Other Family History: No family h/o colon cancer Review of Systems - Review of Systems Constitutional: denies: Chills, Unintentional Wgt. Loss Cardiovascular: reports: Chest Pain Respiratory: denies: SOB Gastrointestinal: reports: Abdominal Pain, Nausea (resolved), Vomiting (resolved ). denies: Bloating, Constipation, Diarrhea, Dysphagia, Melena, Rectal Bleeding , Vomiting Blood Neurological: reports: Dizziness, Headache Physical Exam-GI Vital Signs: Vital Signs Temperature 98.5 F 10/24/18 09:39 Pulse Rate 66 10/24/18 09:39 Respiratory Rate 20 10/24/18 09:39 Blood Pressure 107/73 10/24/18 09:39 O2 Sat by Pulse Oximetry (%) 99 10/24/18 09:00 Constitutional: Yes: Calm Eyes: No: Sclera Icterus Cardiovascular: Yes: Regular Rate and Rhythm. No: Murmur Respiratory: Yes: CTA Bilaterally Gastrointestinal Inspection: Yes: Other (anterior abdominal wall tattoos). No: Scars ...Auscultate: Yes: Normoactive Bowel Sounds ...Palpate: Yes: Soft. No: Hepatomegaly, Splenomegaly, Tenderness ...Percussion: No: Tympanitic Edema: No (No LE edema) Neurological: Yes: Alert Labs: CBC, BMP 10/24/18 05:38 10/24/18 05:38 INR, PTT INR 1.02 (0.83-1.09) 10/23/18 18:34 Hepatic Panel Total Bilirubin 0.4 mg/dL (0.2-1) 10/24/18 05:38 AST 12 U/L (15-37) L 10/24/18 05:38 ALT 12 U/L (13-61) L 10/24/18 05:38 Alkaline Phosphatase 73 U/L (45-117) 10/24/18 05:38 Albumin 3.3 g/dl (3.4-5.0) L 10/24/18 05:38 Imaging - Results Ultrasound: Report Reviewed Problem List - Problems (1) Vomiting Assessment/Plan: No further vomiting and seems to be tolerating PO. ? if a result of her constellation of symptoms as opposed to primary GI etiology. Clairification should be made regarding the need for continued 81mg ASA. Advised patient she should avoid NSAID use Protonix 20mg once daily or equivalent PPI as an outptient Diet as tolerated Outpatient follow-up once other complaints have been evaluated by primary team. Gave patient my card and advised dhe call to make appointment when acute issues resolved. Cardiology following Recall as needed Code(s): R11.10 - VOMITING, UNSPECIFIED
[2018-10-24] MEDS: ACETAMINOPHEN 650 MG/20.3 ML ORAL SOLUTION (CUPS) PO PRN (16:30)
[2018-10-25 08:33] LABS: HEMATOCRIT 36.7 % (32.4-45.2); HEMOGLOBIN 12.7 GM/dL (10.7-15.3); MCH 29.6 pg (25.7-33.7); MCHC 34.7 g/dl (32.0-36.0); MEAN CELL VOLUME 85.3 fl (80-96); MEAN PLT VOLUME 7.3 fl (7.5-11.1); PLATELET COUNT 316 K/MM3 (134-434); RDW 13.4 % (11.6-15.6); WHITE BLOOD COUNT 5.7 K/mm3 (4.0-10.0)
[2018-10-25 08:46] LABS: BLOOD UREA NITROGEN 8.9 mg/dL (7-18); CALCIUM 8.6 mg/dL (8.5-10.1); CREATININE 0.5 mg/dL (0.55-1.3); POTASSIUM 4.1 mmol/L (3.5-5.1)
[2018-10-25 09:47] VITALS: BP 114/60; PULSE 81; TEMP 97.5
[2018-10-25] MEDS: ACETAMINOPHEN 650 MG/20.3 ML ORAL SOLUTION (CUPS) PO PRN (10:18)
[2018-10-25] MEDS: PANTOPRAZOLE 20 MG TABLET (FP) PO SCH (10:18)
[2018-10-25] MEDS: NICOTINE 7 MG/24 HOURS TOPICAL PATCH TD SCH (10:21)
[2018-10-25] MEDS: ENOXAPARIN NA (PORCINE) 40 MG/0.4 ML DISP.SYRIN SQ SCH (10:21)
--- NOTE | 2018-10-25 11:16 | PN ---
Progress Note (short form) - Note Progress Note: s: no cp sob palps dizzy o: Vital Signs Period Temp Pulse Resp BP Sys/Rutherford Pulse Ox Last 24 Hr 97.5 F-98.5 F 60-81 14-20 97-114/55-67 98-99 Constitutional: Yes: No Distress, Calm Eyes: Yes: Conjunctiva Clear, EOM Intact HENT: Yes: Atraumatic, Normocephalic Neck: Yes: Supple, Trachea Midline Respiratory: Yes: CTA Bilaterally (no rales or active wheezing) Gastrointestinal: Yes: Soft, Abdomen, Obese Cardiovascular: Yes: Regular Rate and Rhythm JVD: No Heart Sounds: Yes: S1, S2 (RRR, no M/R/G) Edema: No Neurological: Yes: Alert, Oriented Current Medications Generic Name Dose Route Start Last Admin Trade Name Freq PRN Reason Stop Dose Admin Acetaminophen 650 mg 10/24/18 16:35 10/25/18 10:18 Tylenol Oral Solution - PO 650 mg Q6H PRN Administration PAIN Albuterol/Ipratropium 1 amp 10/23/18 23:30 Duoneb - NEB RQID PRN SHORT OF BREATH/WHEEZING Enoxaparin Sodium 40 mg 10/24/18 10:00 10/25/18 10:21 Lovenox - SQ Not Given DAILY BROCK Nicotine 7 mg 10/23/18 23:47 10/25/18 10:21 Nicoderm Patch - TD Not Given DAILY BROCK Pantoprazole Sodium 20 mg 10/24/18 10:00 10/25/18 10:18 Protonix - PO 20 mg DAILY BROCK Administration CBC, BMP 10/25/18 07:28 10/25/18 07:28 NSR inc RBBB, no acute ST changes tele: sr Imaging - Results X-ray: Report Reviewed, Image Reviewed EKG: Image Reviewed Assessment/Plan IMP: 1. Atypical CP: no acute ECG findings, nl O2 saturation, negative CXR 2. H/o cardiac arrhythmia, unknown type 3. Chronic mild intermittent asthma 4. + Cigs REC: 1. tele benign, outpt f/u 2. Echo and stress test here both unremarkable 3. Advised re. complete smoking cessation cardiac ruvalcaba stable for dc
--- NOTE | 2018-10-25 11:29 | DS ---
Physical Exam: SUBJECTIVE: Patient seen and examined, no complaints, eager to go home. OBJECTIVE: Vital Signs Period Temp Pulse Resp BP Sys/Rutherford Pulse Ox Last 24 Hr 97.5 F-98.5 F 60-81 14-20 97-114/55-67 98-99 Intake & Output 10/22/18 10/23/18 10/24/18 10/25/18 23:59 23:59 23:59 23:59 Intake Total 480 1720 Balance 480 1720 Weight 187 lb 3.2 oz PHYSICAL EXAM General: lying in bed in no acute distress neck: soft, supple, no JVD Chest: CTAB, no rales or wheezing CVS:S1s2 regular Telemetry: NSR, no events noted Abdomen:soft, obese, NT throughout Extremities: no edema LABS Laboratory Results - last 24 hr 10/25/18 10/25/18 07:28 07:28 WBC 5.7 RBC 4.30 Hgb 12.7 Hct 36.7 MCV 85.3 MCH 29.6 MCHC 34.7 RDW 13.4 Plt Count 316 MPV 7.3 L Sodium 138 Potassium 4.1 Chloride 108 H Carbon Dioxide 24 Anion Gap 7 L BUN 8.9 Creatinine 0.5 L Est GFR (CKD-EPI)AfAm 140.31 Est GFR (CKD-EPI)NonAf 121.06 Random Glucose 88 Calcium 8.6 2D echo: LV systolic function normal, EF 55-60%, RV normal in size and function , trace tricuspid regurgitation, no pericardial effusion Stress test: Exercise results: no diagnostic ischemic ECG changes at the achieved heart rate , slightly submaximal exercise, no chest pain during exercise nor during recovery Nuclear results: probably normal Myocardial perfusion with breast attenuation artifact, no evidence of transient ischemic dilatatin LVEF 67 % Carotid Duplex study: minimal intimal thickening at the common carotid bifurcation, bilaterally without evidence of hemodynamically significant stenosis Abdominal US: Slightly dense coarse echotexture of the liver suggestive of mild fatty infiltration versus hepatocellular disease, no gallstones identified HOSPITAL COURSE: Date of Admission:10/23/18 Date of Discharge: 10/25/18 Minutes to complete discharge: 42 Discharge Summary Reason For Visit: SYNCOPE,CHEST PAIN Current Active Problems Chest pain (Acute) Vomiting (Acute) Hospital Course: 38 yof with PMhx of ?arrhythmia, Migrainous headaches, tobaccco use, asthma admitted with episode of abdominal pain, followed by vomiting, dizziness, left sided chest pain radiating to shoulder. Her symptoms resolved, ACS was ruled out. She was watched on telemetry with no events. She was seen by cardiology and had 2Decho and stress that were unremarkable. Her abdominal symptoms, resolved and she was tolerating diet well. She was seen by gastroenterology and recommended avoiding NSAIDs, continue protonix 20 mg daily with outpatient follow up. She had abdominal Ultrasound as above. She will be discharged in stable condition with outpatient cardiology and gastroenterology follow up. Condition: Good - Instructions Diet, Activity, Other Instructions: You were admitted with belly pain, dizziness and chest pain. You were watched on heart monitor, heart attack was ruled out. you had 2D echo and stress test and seen by training intern and deemed stable for discharge. You were also seen by cleaning technician and advised to avoid NSAIDs and continue protonix 20 mg daily with outpatient follow up. MEDICATIONS: Protonix 20 mg daily Stop taking Ibuprofen. Avoid NSAID such as ibuprofen, aleve, motrin etc. INSTRUCTIONS: Strongly advised smoking cessation. FOLLOW UP: With primary care doctor in 1 week With training intern Dr. Brito in 1-2 weeks (can discuss outpatient Holter monitoring) With cleaning technician Dr. Grigsby in 2-3 weeks If you notice recurrent or severe symptoms or any new concerns, please call 911 or come to ED. Referrals: Caesar Grigsby DO [Staff Physician] - Francisco Brito MD [Staff Physician] - Disposition: HOME - Home Medications Comprehensive Discharge Medication List: Ambulatory Orders Albuterol Sulfate [Proair Respiclick] 90 mcg IH PRN PRN 10/23/18 Aspirin [ASA -] 81 mg PO DAILY 10/23/18 Pantoprazole Sodium [Protonix -] 20 mg PO DAILY #30 tablet.ec 10/25/18 This patient is new to me today: No Emergency Visit: Yes ED Registration Date: 10/23/18 Care time: The patient presented to the Emergency Department on the above date and was hospitalized for further evaluation of their emergent condition. Critical Care patient: No - Discharge Referral Referred to [facility] Yes Physician Referral: Reynaldo Grigsby DO (GI)
--- NOTE | 2018-10-25 11:33 | EKG ---
Test Reason : Blood Pressure : / mmHG Vent. Rate : 079 BPM Atrial Rate : 079 BPM P-R Int : 138 ms QRS Dur : 090 ms QT Int : 384 ms P-R-T Axes : 051 -08 009 degrees QTc Int : 440 ms NORMAL SINUS RHYTHM POSSIBLE LEFT ATRIAL ENLARGEMENT LEFT VENTRICULAR HYPERTROPHY ABNORMAL ECG NO PREVIOUS ECGS AVAILABLE Confirmed by MALIHA SHAW MD ([id number]) on 10/25/2018 11:33:35 AM Referred By: Confirmed By:MALIHA SHAW MD
== END 2018-10-25 13:39 | disposition home or self-care (01) ==
LOC: JER 17:57 → INTOOBSV 20:07 → JERBED 20:07 → J4W 21:57
PROVIDERS: ADMIT Internal Medicine; ATTEND Hospitalist
PROC: 3E0337Z Introduction of Electrolytic and Water Balance Substance into Peripheral Vein, Percutaneous Approach (ICD-10-PCS; principal; 2018-10-23)
DX: R07.89 Other chest pain (principal); F17.210 Nicotine dependence, cigarettes, uncomplicated; E66.9 Obesity, unspecified; Z68.33 Body mass index [BMI] 33.0-33.9, adult; R42 Dizziness and giddiness; R10.9 Unspecified abdominal pain; J45.20 Mild intermittent asthma, uncomplicated; R11.10 Vomiting, unspecified
CPT/HCPCS: 36415; 70450-TC; 71046-TC-FY; 76700-TC; 78452-TC; 80048; 80053; 80061; 81003; 82550; 83036; 83721; 83735; 84443; 84484; 84703; 85025; 85027; 85610; 93005; 93010; 93017; 93306-TC; 93880-TC; 96360; 96361; 99285-25; A9502; G0378; J7030

== ENCOUNTER 2019-01-28 01:01 | Emergency (ER) | payer OTHER ==
[2019-01-28 01:15] VITALS: BMI 31.8
[2019-01-28] MEDS ORDERED: IBUPROFEN 600 MG TABLET (FP) PO ONE ×2 (01:28→01:32)
[2019-01-28 01:29] VITALS: BP 123/79; PULSE 85; TEMP 98.7
--- NOTE | 2019-01-28 01:43 | PDOC ---
History of Present Illness - General Chief Complaint: Cold Symptoms Stated Complaint: COUGH Time Seen by Provider: 01/28/19 01:27 History Source: Patient Exam Limitations: No Limitations - History of Present Illness Initial Comments: Shirlene is a 38 yo obese F w a hx of HTN, arrhythmia (specifics unknown), migraines, and asthma who presents the the [facility] with a sore throat for 2 months. She had a rapid strep performed at urgent care earlier today which was negative. The patient states she is truly here bc she wants to make sure her son doesn't have PNA but bc she came to the hospital she decided to be evaluated. She endorses generalized body aches from time to time. She is currently asymptomatic. She denies any chest pain, SOB, difficulty breathing, nausea, vomiting, diarrhea , constipation, back pain, leg pain, dysuria, frequency, urgency PCP: Eleni Hicks PSH: Breast biopsy Social Hx: Denies smoking, drinking, or other substance usage Allergies: NKA, NKDA Past History - Past Medical History Allergies/Adverse Reactions: Allergies Allergy/AdvReac Type Severity Reaction Status Date / Time No Known Allergies Allergy Verified 01/28/19 01:15 Home Medications: Ambulatory Orders Albuterol Sulfate [Proair Respiclick] 90 mcg IH PRN PRN 10/23/18 Aspirin [ASA -] 81 mg PO DAILY 10/23/18 Pantoprazole Sodium [Protonix -] 20 mg PO DAILY #30 tablet.ec 10/25/18 Anemia: Yes Asthma: Yes Cancer: No Cardiac Disorders: No CVA: No COPD: No CHF: No Dementia: No Diabetes: No GI Disorders: No Disorders: Yes (Right ovarian cyst) HTN: No (when ) Hypercholesterolemia: No (when (last)) Liver Disease: No Psychiatric Problems: Yes (ANXIETY) Seizures: No Thyroid Disease: No - Immunization History Immunization Up to Date: Yes - Psycho Social/Smoking Cessation Hx Smoking History: Never smoked Number of Cigarettes Smoked Daily: 2 Hx Alcohol Use: No Drug/Substance Use Hx: No Review of Systems - Review of Systems Able to Perform ROS?: Yes Comments:: CONSTITUTIONAL: Absent: fever, no chills, no fatigue EYES: Absent: visual changes ENT: Absent: ear pain, no sore throat CARDIOVASCULAR: Absent: chest pain, no palpitations RESPIRATORY: Present: Cough Absent: no SOB GI: Absent: abdominal pain, no nausea, no vomiting, no constipation, no diarrhea GENITOURINARY: Absent: dysuria, no frequency, no hematuria MUSKULOSKELETAL: Absent: back pain, no arthralgia, no myalgia SKIN: Absent: rash NEURO: Absent: headache *Physical Exam - Vital Signs Last Vital Signs Temp Pulse Resp BP Pulse Ox 98.7 F 85 18 123/79 96 01/28/19 01:11 01/28/19 01:11 01/28/19 01:11 01/28/19 01:11 01/28/19 01:11 - Physical Exam GENERAL: Well-appearing, well-nourished. No apparent distress. HEENT: Normocephalic, atraumatic. PERRL, EOM intact. CARDIOVASCULAR: Normal S1, S2. Regular rate and rhythm. PULMONARY: No evidence of respiratory distress. Lungs clear to auscultation bilaterally. No wheezing, rales or rhonchi. ABDOMEN: Soft, non-distended, non-tender. EXTREMITIES: Normal ROM in all four extremities. No gross deformities. SKIN: Warm, dry. No rash NEUROLOGICAL: No focal neurological deficits. ED Treatment Course - RADIOLOGY Radiology Studies Ordered: Category Date Time Status CHEST PA & LAT [RAD] Stat Radiology 01/28/19 01:27 Ordered - Medications Given in the ED: ED Medications Discontinued Medications Generic Name Dose Route Start Last Admin Trade Name Freq PRN Reason Stop Dose Admin Ibuprofen 600 mg 01/28/19 01:28 01/28/19 01:35 Motrin - PO 01/28/19 01:29 600 mg ONCE ONE Administration Medical Decision Making - Medical Decision Making Shirlene is a 38 yo obese F w a hx of HTN, arrhythmia (specifics unknown), migraines, and asthma who presents the the [facility] er [facility] with a sore throat for 2 months. She had a rapid strep performed at urgent care earlier today which was negative. The patient states she is truly here bc she wants to make sure her son doesn't have PNA but bc she came to the hospital she decided to be evaluated. She endorses generalized body aches from time to time. She is currently asymptomatic. She denies any chest pain, SOB, difficulty breathing, nausea, vomiting, diarrhea , constipation, back pain, leg pain, dysuria, frequency, urgency MDM: Patient presents with a cough and wants to make sure she doesn't have PNA Plan: CXR, LINDSAY green CXR: Unremarkable Disposition: Home with PCP FU Discharge - Discharge Information Problems reviewed: Yes Clinical Impression/Diagnosis: Cough Condition: Stable Disposition: HOME - Admission No - Follow up/Referral Referrals: Eleni Hicks MD [Primary Care Provider] - - Patient Discharge Instructions Patient Printed Discharge Instructions: How to Avoid a Cold or Flu Additional Instructions: You came into the ER with a cough concerned you had pneumonia We did a chest x-ray which showed you do not have pneumonia. Please schedule a follow up with your primary care doctor and schedule a follow up in the next 3 to 5 days to make sure you are feeling well, being taken care of, and getting better. Come back to the ER if you have any chest pain, shortness of breath or other new or worsening concerns Thank you for coming to the [facility] ER. We hope you feel better soon! Print Language: YI - Post Discharge Activity
--- NOTE | 2019-01-28 01:49 | PDOC ---
Attending Attestation - Resident Resident Name: Jaguar Paniagua - ED Attending Attestation I have performed the following: I have examined & evaluated the patient, The case was reviewed & discussed with the resident, I agree w/resident's findings & plan, Exceptions are as noted - HPI HPI: 01/28/19 01:48 this 38 yo female has c/o sore throat for 2 months and she was seen at urgent care today and had a rapid strep swab done and it was negative - Physicial Exam PE: 01/28/19 01:49 wnwd 38 yo female in no acute distress head ncat neck supple lungs cta b/l cvs [id number] abd nontender skin warm and dry neuro axox3,ambulatory - Medical Decision Making 01/28/19 01:51 imp sore throat d/c home pt can take OTC buchanan meds if needed
== END 2019-01-28 02:03 | disposition home or self-care (01) ==
LOC: JER 01:01
DX: R05 Cough (principal); I10 Essential (primary) hypertension; I49.9 Cardiac arrhythmia, unspecified; G43.909 Migraine, unspecified, not intractable, without status migrainosus; J45.909 Unspecified asthma, uncomplicated; F41.9 Anxiety disorder, unspecified; D64.9 Anemia, unspecified
CPT/HCPCS: 71046-TC-FY; 99282-25

== ENCOUNTER 2019-03-06 16:33 | Emergency (ER) | payer OTHER ==
--- NOTE | 2019-03-06 16:42 | PDOC ---
Rapid Medical Evaluation Time Seen by Provider: 03/06/19 16:41 Medical Evaluation: Allergies Allergy/AdvReac Type Severity Reaction Status Date / Time No Known Allergies Allergy Verified 03/05/19 19:44 03/06/19 16:41 HPI: Abdominal pain x3 months PE: No gross deficits ORDERS:Belly labs Discharge Disposition - Diagnosis Abdominal pain - Discharge Dispostion Condition at time of disposition: Stable - Referrals - Patient Instructions - Post Discharge Activity
[2019-03-06 16:44] VITALS: BP 129/67; PULSE 91; TEMP 98; BMI 32.4
--- NOTE | 2019-03-06 17:07 | PDOC ---
History of Present Illness - General Chief Complaint: Pain Stated Complaint: ABD PAIN Time Seen by Provider: 03/06/19 16:41 History Source: Patient Exam Limitations: No Limitations - History of Present Illness Initial Comments: 03/06/19 17:05 38yF w PMHx HTN, arrhythmia (specifics unknown), migraines, GERD, asthma presenting w 3d intermittent sharp epigastric pain radiating to back. Associated nausea, poor PO appetite, leticia headache, vomiting x3 and diarrhea x4 yesterday. Not related to position/exertion/food. Took aleve at 9a this morning. Denies alcohol, smoking, illicit drugs, abdominal surgeries. Denies fever/chills, nasal congestion, cough, chest pain, SOB, urinary symptoms. Past History - Past Medical History Allergies/Adverse Reactions: Allergies Allergy/AdvReac Type Severity Reaction Status Date / Time No Known Allergies Allergy Verified 03/06/19 16:44 Home Medications: Ambulatory Orders Albuterol Sulfate [Proair Respiclick] 90 mcg IH PRN PRN 10/23/18 Famotidine [Pepcid -] 40 mg PO DAILY 03/06/19 Anemia: Yes Asthma: Yes Cancer: No Cardiac Disorders: Yes CVA: No COPD: No CHF: No Dementia: No Diabetes: No GI Disorders: Yes (GASTRITIS) Disorders: Yes (Right ovarian cyst) HTN: No (when ) Hypercholesterolemia: No (when (last)) Liver Disease: No Psychiatric Problems: Yes (ANXIETY) Seizures: No Thyroid Disease: No - Immunization History Immunization Up to Date: Yes - Psycho Social/Smoking Cessation Hx Smoking History: Never smoked Number of Cigarettes Smoked Daily: 2 Hx Alcohol Use: No Drug/Substance Use Hx: No Review of Systems - Review of Systems Constitutional: No: Chills, Fever HEENTM: No: Eye Pain, Recent change in vision, Nose Pain, Throat Pain Respiratory: No: Cough, Shortness of Breath Cardiac (ROS): No: Chest Pain, Palpitations, Syncope ABD/GI: Yes: Diarrhea, Nausea, Poor Appetite, Vomiting. No: Abdominal Distended : No: Burning, Dysuria, Discharge Musculoskeletal: No: Back Pain, Joint Pain Integumentary: No: Bruising, Dryness, Erythema Neurological: Yes: Headache. No: Seizure, Tingling Psychiatric: No: Anxiety, Depression, Stressors Endocrine: No: Excessive Sweating, Flushing, Intolerance to Cold, Intolerance to Heat Hematologic/Lymphatic: No: Anemia, Blood Clots *Physical Exam - Vital Signs Last Vital Signs Temp Pulse Resp BP Pulse Ox 98 F 91 H 18 129/67 100 03/06/19 16:40 03/06/19 16:40 03/06/19 16:40 03/06/19 16:40 03/06/19 16:40 - Physical Exam General Appearance: Yes: Nourished, Appropriately Dressed, Mild Distress HEENT: positive: EOMI, CATALINO, Normal Voice. negative: Scleral Icterus (R), Scleral Icterus (L), Nasal Congestion Respiratory/Chest: positive: Lungs Clear, Normal Breath Sounds. negative: Chest Tender, Respiratory Distress, Crackles, Rales, Rhonchi, Stridor, Wheezing Cardiovascular: positive: Regular Rhythm, Regular Rate, S1, S2. negative: Edema , Murmur Gastrointestinal/Abdominal: positive: Normal Bowel Sounds, Tender (mild epigastric, neg Alfaro), Flat, Soft. negative: Organomegaly, Distended, Guarding, Tenderness, Hernia, Mass Musculoskeletal: negative: CVA Tenderness (R), CVA Tenderness (L) Extremity: positive: Delayed Capillary Refill Integumentary: positive: Normal Color, Dry Neurologic: positive: pastor II-XII NML intact, Fully Oriented, Alert, Normal Response, Motor Strength 5/5, Responsive. negative: Numbness, Confused, Disoriented ED Treatment Course - LABORATORY CBC & Chemistry Diagram: 03/06/19 17:03 03/06/19 17:03 Medical Decision Making - Medical Decision Making 03/06/19 17:36 EKG NSR 85, QTc 452, no ST changes --- 38yF w PMHx HTN, arrhythmia (specifics unknown), migraines, GERD, asthma presenting w 3d intermittent sharp epigastric pain, vomiting, diarrhea d/t gastroenteritis. Low concern for ACS (NSR EKG, neg trop) vs cholelithiasis (neg Alfaro) vs pancreatitis (normal lipase) vs (neg) vs SBO (not distended , no past sx) vs UTI (clean UA) Given pepcid, maalox, 1L NS, tylenol, zofran w improvement. DC home w PCP f/u Discharge - Discharge Information Problems reviewed: Yes Clinical Impression/Diagnosis: Gastroenteritis Condition: Improved Disposition: HOME - Admission No - Follow up/Referral Referrals: Eleni Hicks MD [Primary Care Provider] - - Patient Discharge Instructions Patient Printed Discharge Instructions: DI for Abdominal Pain-Adult Additional Instructions: You were seen for abdominal pain. Your labs did not show anything concerning. You were given medication Take famotidine or tylenol if you continue to have pain. Avoid fried, spicy, or heavy foods. Drink lots of water Please follow up with your primary care doctor early next week. Come back to the ED if you have persistent vomiting, worsening chest pain, or trouble breathing - Post Discharge Activity
[2019-03-06 17:16] LABS: BASO % 0.3 % (0-2.0); HEMATOCRIT 39.9 % (32.4-45.2); HEMOGLOBIN 13.4 GM/dL (10.7-15.3); LYMPH % 18.4 % (8-40); MCH 28.5 pg (25.7-33.7); MCHC 33.7 g/dl (32.0-36.0); MEAN CELL VOLUME 84.6 fl (80-96); MEAN PLT VOLUME 7.1 fl (7.5-11.1); MONO % 7.1 % (3.8-10.2); NEUT % 73.2 % (42.8-82.8); PLATELET COUNT 323 K/MM3 (134-434); RBC 4.71 M/mm3 (3.60-5.2); RDW 13.4 % (11.6-15.6); WHITE BLOOD COUNT 8.6 K/mm3 (4.0-10.0)
[2019-03-06] MEDS ORDERED: FAMOTIDINE 20 MG/50 ML IVPB 20 MG/50 ML MG IVPB ONE ×2 (17:17→17:26)
[2019-03-06] MEDS ORDERED: ONDANSETRON 4 MG/2 ML VIAL IVPUSH ONE (17:18)
[2019-03-06] MEDS ORDERED: ACETAMINOPHEN 1000 MG/100 ML VIAL (NON FORMULARY) IVPB ONE (17:18)
[2019-03-06] MEDS ORDERED: SODIUM CHLORIDE 0.9% 500 ML INFUS.BAG IV ONE (17:18)
[2019-03-06] MEDS ORDERED: MAG HYDROX/AL HYDROX/SIMETH -MYLANTA- ORAL SUSPENSION PO ONE (17:18)
[2019-03-06 17:26] LABS: EPI CELLS 2.2 /HPF (0-5/HPF); HYALINE CASTS 1 /lpf (0-8); PH,URINE 5.5 (5.0-8.0); URINE APPEARANCE CLEAR; URINE BACTERIA 68.8 /hpf (NEGATIVE); URINE BILIRUBIN NEGATIVE (NEGATIVE); URINE COLOR YELLOW; URINE GLUCOSE (UA) NEGATIVE (NEGATIVE); URINE KETONE NEGATIVE (NEGATIVE); URINE LEUK ESTERASE NEGATIVE (NEGATIVE); URINE NITRITE NEGATIVE (NEGATIVE); URINE PROTEIN NEGATIVE (NEGATIVE); URINE RBC 21 /hpf (0-4); URINE WBC 2 /hpf (0-5)
[2019-03-06] MEDS ORDERED: ACETAMINOPHEN INJECTION 100 ML IVPB ONE (17:26)
[2019-03-06] MEDS ORDERED: ONDANSETRON 4 MG/2 ML VIAL ONE (17:26)
[2019-03-06] MEDS ORDERED: MAG HYDROX/AL HYDROX/SIMETH 30 ML UNIT-DOSE CUP ONE (17:26)
--- NOTE | 2019-03-06 17:52 | PDOC ---
Documentation entered by Vince Hummel SCRIBE, acting as scribe for Reagan Almeida MD. Reagan Almeida MD: This documentation has been prepared by the Shaheed richter Daniel, SCRIBE, under my direction and personally reviewed by me in its entirety. I confirm that the documentation accurately reflects all work, treatment, procedures, and medical decision making performed by me. Attending Attestation - Resident Resident Name: Laureano Casas - ED Attending Attestation I have performed the following: I have examined & evaluated the patient, The case was reviewed & discussed with the resident, I agree w/resident's findings & plan, Exceptions are as noted - HPI HPI: 03/06/19 17:21 The patient is a year old with a past medical history of HTN, arrhythmia ( specifics unknown), GERD, migraines, and asthma here today for evaluation of 3 days of epigastric pain. Pain is stabbing/burning in nnature and radiates to the back associated with nbnb nausea and nb/non melantic diarrhea w.o fever/ chills. She also reports having a poor appetite due to her pain. Patient denies headache, lightheadedness. Denies fever, chills. Denies chest pain, shortness of breath. Allergies: NKA PCP: Eleni Hicks - Physicial Exam PE: 03/06/19 17:31 GENERAL: The patient is awake, alert, and fully oriented, Nontoxic - in no acute distress. HEAD: Normocephalic, atraumatic. EYES: extraocular movements intact, sclera anicteric, conjunctiva clear. ENT: Normal voice, Moist mucous membranes. NECK: Normal range of motion, supple LUNGS: Breath sounds equal, clear to auscultation bilaterally. No wheezes, no rhonchi, no rales. HEART: Regular rate and rhythm, normal S1 and S2 without murmur, rub or gallop. ABDOMEN: Soft, minimal epgiastric tenderness, No guarding, no rebound. neg murphies No CVA tenderness EXTREMITIES: Normal range of motion, no edema. NEUROLOGICAL: No facial assymetry, Normal speech, PSYCH: Normal mood, normal affect. SKIN: Warm, Dry, normal turgor, - Medical Decision Making 03/06/19 17:44 diffuse epigastric pain radiating throughout abd and to back with food - ddx includes possible gasritis, pancreatitis, gerd no focal abd tenderness to suggest cholecystitis, appendicitis. consider gall stones, howver pt had an abd US in Sep 2018 without any evidence of gall sones. will obtain lab work and treat pt sypmtmatically with antacids. 03/06/19 18:31 pts labs were reviewed they are unremarkable pt feeling improved minh dc with GI fu, pt has a GI appointment scheduled on 04/06 return precautions were discussed Heart Score/ECG Review - ECG Impressions Comment:: 03/06/19 20:46 Twelve-lead EKG was performed and reviewed by me. There is normal sinus rhythm with a normal rate. Rate of 85 The axis is normal. The intervals are normal. There is normal R wave progression There are no ST or T wave abnormalities. Impression: Normal twelve-lead EKG
[2019-03-06 18:02] LABS: ALBUMIN 3.4 g/dl (3.4-5.0); ALK PHOS 80 U/L (45-117); ANION GAP 6 MMOL/L (8-16); BILIRUBIN,TOTAL 0.5 mg/dL (0.2-1); BLOOD UREA NITROGEN 12.3 mg/dL (7-18); CALCIUM 8.6 mg/dL (8.5-10.1); CHLORIDE 106 mmol/L (98-107); CO2 24 mmol/L (21-32); CREATININE 0.6 mg/dL (0.55-1.3); GLUCOSE,RANDOM 88 mg/dL (74-106); LIPASE 161 U/L (73-393); POTASSIUM 3.9 mmol/L (3.5-5.1); SGOT/AST 13 U/L (15-37); SGPT/ALT 19 U/L (13-61); SODIUM 137 mmol/L (136-145); TOT PROT 7.3 g/dl (6.4-8.2)
--- NOTE | 2019-03-07 09:49 | EKG ---
Test Reason : Blood Pressure : / mmHG Vent. Rate : 085 BPM Atrial Rate : 085 BPM P-R Int : 134 ms QRS Dur : 090 ms QT Int : 380 ms P-R-T Axes : 051 -07 008 degrees QTc Int : 452 ms NORMAL SINUS RHYTHM NORMAL ECG WHEN COMPARED WITH ECG OF 23-OCT-2018 18:06, NO SIGNIFICANT CHANGE WAS FOUND Confirmed by PRIYANK EMERY MD ([id number]) on 03/07/2019 9:49:22 AM Referred By: Confirmed By:PRIYANK EMERY MD
== END 2019-03-06 18:48 | disposition home or self-care (01) ==
LOC: JER 16:33
PROC: 3E033GC Introduction of Other Therapeutic Substance into Peripheral Vein, Percutaneous Approach (ICD-10-PCS; principal; 2019-03-06)
PROC: 3E033GC Introduction of Other Therapeutic Substance into Peripheral Vein, Percutaneous Approach (ICD-10-PCS; 2019-03-06)
PROC: 3E033NZ Introduction of Analgesics, Hypnotics, Sedatives into Peripheral Vein, Percutaneous Approach (ICD-10-PCS; 2019-03-06)
DX: K52.9 Noninfective gastroenteritis and colitis, unspecified (principal); D64.9 Anemia, unspecified; J45.909 Unspecified asthma, uncomplicated; F41.9 Anxiety disorder, unspecified; N83.201 Unspecified ovarian cyst, right side
CPT/HCPCS: 36415; 80053; 81003; 83690; 84484; 84703; 85025; 93005; 93010; 96365; 96375; 99283-25; J0131

== ENCOUNTER 2019-05-04 15:35 | Emergency (ER) | payer OTHER ==
--- NOTE | 2019-05-04 16:14 | PDOC ---
Rapid Medical Evaluation Medical Evaluation: Allergies Allergy/AdvReac Type Severity Reaction Status Date / Time No Known Allergies Allergy Verified 04/24/19 10:20 05/04/19 16:10 I have performed a brief in-person evaluation of this patient. The patient presents with a chief complaint of:cough w/ GALICIA today. No fever. Son w/ similar sxs and also a pt Pertinent physical exam findings:stable and well elvis I have ordered the following:nothing The patient will proceed to the ED for further evaluation 05/04/19 16:14 Discharge Disposition - Diagnosis URI (upper respiratory infection) Qualifiers: URI type: unspecified viral URI Qualified Code(s): J06.9 - Acute upper respiratory infection, unspecified - Referrals - Patient Instructions - Post Discharge Activity
[2019-05-04 16:16] VITALS: BP 112/72; PULSE 84; TEMP 98.7; BMI 31.8
--- NOTE | 2019-05-04 16:52 | PDOC ---
History of Present Illness - General Chief Complaint: Cold Symptoms Stated Complaint: COLD SYMPTOMS Time Seen by Provider: 05/04/19 16:14 - History of Present Illness Initial Comments: 05/04/19 16:50 39-year-old female with sinus pressure x2 weeks no systemic symptoms Past History - Past Medical History Allergies/Adverse Reactions: Allergies Allergy/AdvReac Type Severity Reaction Status Date / Time No Known Allergies Allergy Verified 04/24/19 10:20 Home Medications: Ambulatory Orders Albuterol Sulfate [Proair Respiclick] 90 mcg IH PRN PRN 10/23/18 Famotidine [Pepcid -] 40 mg PO HS 03/06/19 Omeprazole Magnesium [Prilosec Otc] 40 mg PO DAILY 04/24/19 Sertraline HCl [Zoloft] 100 mg PO DAILY 04/24/19 Amox-Tr/K Cl [Augmentin - 875Mg Tablet] 1 tab PO BID #20 tablet 05/04/19 Budesonide [Rhinocort Allergy] 1 spray NS ONCE #1 spray.pump 05/04/19 Anemia: Yes Asthma: Yes Cancer: No Cardiac Disorders: Yes (arrhytmia,orthostatic hypotension) CVA: No COPD: No CHF: No Dementia: No Diabetes: No GI Disorders: Yes (GASTRITIS) Disorders: Yes (Right ovarian cyst) HTN: No Hypercholesterolemia: No Liver Disease: No Psychiatric Problems: Yes (ANXIETY) Seizures: No Thyroid Disease: No - Immunization History Immunization Up to Date: Yes - Psycho Social/Smoking Cessation Hx Smoking History: Never smoked Have you smoked in the past 12 months: Yes Number of Cigarettes Smoked Daily: 2 If you are a former smoker, when did you quit?: few mo ago Information on smoking cessation initiated: No Hx Alcohol Use: No Drug/Substance Use Hx: No Substance Use Type: Alcohol Review of Systems - Review of Systems Constitutional: No: Fever HEENTM: Yes: See HPI, Nose Pain, Nose Congestion Neurological: Yes: Headache *Physical Exam - Vital Signs Last Vital Signs Temp Pulse Resp BP Pulse Ox 98.7 F 84 18 112/72 100 05/04/19 16:14 05/04/19 16:14 05/04/19 16:14 05/04/19 16:14 05/04/19 16:14 - Physical Exam 05/04/19 16:50 GENERAL: The patient is awake, alert, and fully oriented, in no acute distress. HEAD: Normal with no signs of trauma. EYES: sclera anicteric, conjunctiva clear. ENT: Ears normal tympanic membranes normal oropharynx clear uvula midline tender frontal and maxillary sinuses NECK: Normal range of motion LUNGS: Breath sounds equal, clear to auscultation bilaterally. No wheezes, and no crackles. HEART: S1 and S2 without murmur, rub or gallop. ABDOMEN: Soft, nontender, normoactive bowel sounds. No guarding, no rebound. No masses. EXTREMITIES: Normal range of motion, no edema. No clubbing or cyanosis. No cords, erythema, or tenderness. NEUROLOGICAL: Cranial nerves II through XII grossly intact. PSYCH: Normal mood, normal affect. SKIN: Warm, Dry, normal turgor, no rashes or lesions noted. Medical Decision Making - Medical Decision Making 05/04/19 16:50 We will treat for bacterial sinusitis I have reviewed the pathophysiology with the patient. They are in agreement with the treatment plan all questions were answered to their satisfaction. Understanding for follow-up without fail was also conveyed to the patient. Again they are in agreement. Discharge - Discharge Information Problems reviewed: Yes Clinical Impression/Diagnosis: Bacterial sinusitis URI (upper respiratory infection) Qualifiers: URI type: unspecified viral URI Qualified Code(s): J06.9 - Acute upper respiratory infection, unspecified Condition: Stable Disposition: HOME - Admission No - Follow up/Referral Referrals: Eleni Hicks MD [Primary Care Provider] - Aj Johnson MD [Staff Physician] - - Patient Discharge Instructions Additional Instructions: Please take the antibiotics and use the nasal spray as directed. Without fail follow-up with otolaryngology in 2 to 3 days for further evaluation and treatment options. Return to the emergency room for worsening symptoms. - Post Discharge Activity
== END 2019-05-04 16:58 | disposition home or self-care (01) ==
LOC: JERFT 15:35 → JER 15:35 → JERFT 16:58
DX: J32.8 Other chronic sinusitis (principal); B96.89 Other specified bacterial agents as the cause of diseases classified elsewhere; J06.9 Acute upper respiratory infection, unspecified; D64.9 Anemia, unspecified; J45.909 Unspecified asthma, uncomplicated; K29.70 Gastritis, unspecified, without bleeding; F41.9 Anxiety disorder, unspecified; N83.201 Unspecified ovarian cyst, right side; Z86.79 Personal history of other diseases of the circulatory system; Z87.891 Personal history of nicotine dependence
CPT/HCPCS: 99281-25

== ENCOUNTER 2019-10-29 15:06 | Emergency (ER) | payer OTHER ==
[2019-10-29 15:10] VITALS: TEMP 98.7; BMI 31.8
[2019-10-29] MEDS ORDERED: SODIUM CHLORIDE 1,000 ML IV STA (15:46)
--- NOTE | 2019-10-29 15:48 | PDOC ---
History of Present Illness - General Chief Complaint: Headache Stated Complaint: HEADACHE/ DIZZINESS Time Seen by Provider: 10/29/19 15:19 History Source: Patient Exam Limitations: No Limitations Past History - Travel History Traveled outside of the country in the last 30 days: No Close contact w/someone who was outside of country & ill: No - Medical History Allergies/Adverse Reactions: Allergies Allergy/AdvReac Type Severity Reaction Status Date / Time No Known Allergies Allergy Verified 10/29/19 15:07 Home Medications: Ambulatory Orders Albuterol Sulfate [Proair Respiclick] 90 mcg IH PRN PRN 10/23/18 Famotidine [Pepcid -] 40 mg PO HS 03/06/19 Omeprazole Magnesium [Prilosec Otc] 40 mg PO DAILY 04/24/19 Sertraline HCl [Zoloft] 100 mg PO DAILY 04/24/19 Amox-Tr/K Cl [Augmentin - 875Mg Tablet] 1 tab PO BID #20 tablet 05/04/19 Budesonide [Rhinocort Allergy] 1 spray NS ONCE #1 spray.pump 05/04/19 Amox-Tr/K Cl [Augmentin - 875Mg Tablet] 1 tab PO BID #20 tablet 10/29/19 Cyclobenzaprine HCl [Flexeril -] 10 mg PO HS #10 tablet 10/29/19 Ibuprofen 600 mg PO Q6H #30 tablet 10/29/19 Anemia: Yes Asthma: Yes Cancer: No Cardiac Disorders: Yes (arrhytmia,orthostatic hypotension) CVA: No COPD: No CHF: No Dementia: No Diabetes: No GI Disorders: Yes (GASTRITIS) Disorders: Yes (Right ovarian cyst) HTN: No Hypercholesterolemia: No Liver Disease: No Psychiatric Problems: Yes (ANXIETY) Seizures: No Thyroid Disease: No - Reproductive History Is Patient Now?: No - Immunization History Immunization Up to Date: Yes - Psycho-Social/Smoking History Smoking History: Never smoked Have you smoked in the past 12 months: Yes Number of Cigarettes Smoked Daily: 2 If you are a former smoker, when did you quit?: few mo ago - Substance Abuse Hx (Audit-C & DAST Scrn) How often the patient has a drink containing alcohol: Monthly or less How often the patient has six or more drinks on one occasion: Never Score: In Men: 4 or > Positive; In Women: 3 or > Positive: 1 Screen Result (Pos requires Nsg. Audit-10AR): Negative In the last yr the pt used illegal drug/Rx for NonMed reason: No Score: Yes response is considered Positive: 0 Screen Result (Positive result requires Nsg. DAST-10): Negative Review of Systems - Review of Systems Able to Perform ROS?: Yes Comments:: 10/29/19 19:34 CONSTITUTIONAL: Absent: fever, chills, diaphoresis, generalized weakness, malaise, loss of appetite HEENT: Present: L ear ache Absent: rhinorrhea, nasal congestion, throat pain, throat swelling, difficulty swallowing, mouth swelling, eye pain, visual Changes CARDIOVASCULAR: Absent: chest pain, loss of consciousness, palpitations, irregular heart rate, peripheral edema RESPIRATORY: Absent: cough, shortness of breath, dyspnea with exertion, orthopnea, wheezing, stridor, hemoptysis GASTROINTESTINAL: Absent: abdominal pain, abdominal distension, nausea, vomiting, diarrhea, constipation, melena, hematochezia GENITOURINARY: Absent: dysuria, frequency, urgency, hesitancy, hematuria, flank pain, genital pain MUSCULOSKELETAL: Absent: myalgia, arthralgia, joint swelling SKIN: Absent: rash, itching, pallor HEMATOLOGIC/IMMUNOLOGIC: Absent: easy bleeding, easy bruising, lymphadenopathy, frequent infections ENDOCRINE: Absent: unexplained weight gain, unexplained weight loss, heat intolerance, cold intolerance NEUROLOGIC: Present: dizziness Absent: headache, focal weakness or paresthesias, unsteady gait, seizure, mental status changes, bladder or bowel incontinence PSYCHIATRIC: Absent: anxiety, depression, suicidal or homicidal ideation, hallucinations. Is the patient limited Polish proficient: No *Physical Exam - Vital Signs Last Vital Signs Temp Pulse Resp BP Pulse Ox 98.7 F 79 18 110/62 100 10/29/19 15:08 10/29/19 15:08 10/29/19 15:08 10/29/19 15:08 10/29/19 15:08 - Physical Exam 10/30/19 18:35 GENERAL: Well developed, well nourished. Awake and alert. No acute distress. HEENT: Normocephalic, atraumatic. PERRLA, EOMI. No conjunctival pallor. Sclera are non- icteric. Moist mucous membranes. Oropharynx is clear. L TM with white cloudy patches behind the TM with slight bulging NECK: Supple. Full ROM. No JVD. Carotid pulses 2+ and symmetric, without bruits. No thyromegaly. No lymphadenopathy. CARDIOVASCULAR: Regular rate and rhythm. No murmurs, rubs, or gallops. Distal pulses are 2+ and symmetric. PULMONARY: No evidence of respiratory distress. Lungs clear to auscultation bilaterally. No wheezing, rales or rhonchi. ABDOMINAL: Soft. Non-tender. Non-distended. No rebound or guarding. No organomegaly. Normoactive bowel sounds. MUSCULOSKELETAL Normal range of motion at all joints. No bony deformities or tenderness. No CVA tenderness. EXTREMITIES: No cyanosis. No clubbing. No edema. No calf tenderness. SKIN: Warm and dry. Normal capillary refill. No rashes. No jaundice. NEUROLOGICAL: Alert, awake, appropriate. Cranial nerves 2-12 intact. No deficits to light touc h and temperature in face, upper extremities and lower extremities. No motor deficits in the in face, upper extremities and lower extremities. Normoreflexic in the upper and lower extremities. Normal speech. Toes are down-going bilaterally. Gait is normal without ataxia. PSYCHIATRIC: Cooperative. Good eye contact. Appropriate mood and affect. ED Treatment Course - LABORATORY CBC & Chemistry Diagram: 10/29/19 16:00 10/29/19 16:00 Medical Decision Making - Medical Decision Making 10/29/19 19:36 The patient is a 39-year-old female with past medical history of sleep apnea, presents to the ER today for dizziness and earache. She stated her dizziness started a week ago. She states she also suffers from orthostatic hypotension but this feels different to her. She states the dizziness feels as if she were underwater. She said she was evaluated at urgent care 2 days ago for which she was prescribed meclizine which did not help her symptoms. She also notes that her left ear has been bothering her as well as her neck. Denies loss of consciousness, numbness and tingling to the extremities, vomiting A/P: Dizziness On exam patient does appear to have a left otitis media. Neurological exam is grossly intact. Patient concerned that her symptoms might be related to a stroke and requesting a head CT. Head CT is grossly normal. Electrolytes within normal limits as well. Suspect patient is having some middle ear dysfunction given exam findings. Patient also has some discomfort to the paraspinous muscles of her neck. This may also be causing a tension headache. We will treat with Augmentin and Flexeril and referred to ENT. Discharge home I discussed the physical exam findings, ancillary test results and final diagnoses with the patient. I answered all of the patient's questions. The patient was satisfied with the care received and felt comfortable with the discharge plan and treatment plan. The Patient agrees to follow up with the primary care physician/specialist within 24-72 hours. Return precautions were given. Discharge - Discharge Information Problems reviewed: Yes Clinical Impression/Diagnosis: Dizziness Condition: Stable Disposition: HOME - Admission No - Additional Discharge Information Prescriptions: Amox-Tr/K Cl [Augmentin - 875Mg Tablet] 1 tab PO BID #20 tablet Cyclobenzaprine HCl [Flexeril -] 10 mg PO HS #10 tablet Ibuprofen 600 mg PO Q6H #30 tablet - Follow up/Referral Referrals: Eleni Hicks MD [Primary Care Provider] - Aj Johnson MD [Staff Physician] - - Patient Discharge Instructions Patient Printed Discharge Instructions: DI for Dizziness-Nonvertigo, DI for Middle Ear Infection-Adult Additional Instructions: You were seen today for your dizziness. Your head CT was normal. You probably have a middle ear infection. Please take the antibiotics twice a day for 10 days. You may also use the Flonase twice a day to decongest. You may take Motrin as needed for pain. Follow dose instruction the bottle. You most probably have a tension headache. Please take the Flexeril at night before bed to help with muscle spasms. Follow-up with your primary care doctor this week for further evaluation. Return to the ER for worsening pain, lightheadedness, loss consciousness, or if you have any changes in your symptoms - Post Discharge Activity
[2019-10-29 16:44] LABS: BASO % 0.4 % (0-2.0); EOS % 1.4 % (0-4.5); HEMATOCRIT 40.6 % (32.4-45.2); HEMOGLOBIN 13.8 GM/dL (10.7-15.3); LYMPH % 29.1 % (8-40); MCH 28.9 pg (25.7-33.7); MCHC 33.9 g/dl (32.0-36.0); MEAN CELL VOLUME 85.4 fl (80-96); MEAN PLT VOLUME 7.6 fl (7.5-11.1); MONO % 6.2 % (3.8-10.2); NEUT % 62.9 % (42.8-82.8); PLATELET COUNT 355 K/MM3 (134-434); RBC 4.75 M/mm3 (3.60-5.2); RDW 13.4 % (11.6-15.6); WHITE BLOOD COUNT 9.8 K/mm3 (4.0-10.0)
[2019-10-29 17:19] LABS: ALBUMIN 3.7 g/dl (3.4-5.0); BILIRUBIN,TOTAL 0.3 mg/dL (0.2-1); BLOOD UREA NITROGEN 11.8 mg/dL (7-18); CALCIUM 9.3 mg/dL (8.5-10.1); CREATININE 0.7 mg/dL (0.55-1.3); POTASSIUM 4.6 mmol/L (3.5-5.1); TOT PROT 7.6 g/dl (6.4-8.2)
[2019-10-29 19:00] LABS: PH,URINE 5.5 (5.0-8.0); URINE APPEARANCE CLEAR; URINE BILIRUBIN NEGATIVE (NEGATIVE); URINE COLOR YELLOW; URINE GLUCOSE (UA) NEGATIVE (NEGATIVE); URINE KETONE NEGATIVE (NEGATIVE); URINE LEUK ESTERASE NEGATIVE (NEGATIVE); URINE NITRITE NEGATIVE (NEGATIVE); URINE PROTEIN NEGATIVE (NEGATIVE); URINE UROBILINOGEN 0.2 mg/dL (0.2-1.0)
[2019-10-29 19:53] VITALS: BP 110/79; PULSE 63
--- NOTE | 2019-10-30 10:54 | EKG ---
Test Reason : Blood Pressure : / mmHG Vent. Rate : 065 BPM Atrial Rate : 065 BPM P-R Int : 132 ms QRS Dur : 090 ms QT Int : 408 ms P-R-T Axes : 046 -08 -03 degrees QTc Int : 424 ms NORMAL SINUS RHYTHM WITH SINUS ARRHYTHMIA NONSPECIFIC T WAVE ABNORMALITY WHEN COMPARED WITH ECG OF 06-MAR-2019 16:58, NO SIGNIFICANT CHANGE WAS FOUND Confirmed by ESTHELA DEL REAL MD ([id number]) on 10/30/2019 10:53:55 AM Referred By: Confirmed By:ESTHELA DEL REAL MD
== END 2019-10-29 20:10 | disposition home or self-care (01) ==
LOC: JER 15:06
PROC: 3E0337Z Introduction of Electrolytic and Water Balance Substance into Peripheral Vein, Percutaneous Approach (ICD-10-PCS; principal; 2019-10-29)
DX: R42 Dizziness and giddiness (principal)
CPT/HCPCS: 36415; 70450-TC; 80053; 81003; 85025; 93005; 93010; 99285-25

== ENCOUNTER 2020-02-13 19:22 | Emergency (ER) | payer OTHER ==
[2020-02-13 19:43] VITALS: TEMP 97.9; BMI 31.8
[2020-02-13] MEDS ORDERED: ACETAMINOPHEN 500 MG TABLET (FP) PO ONE (20:50)
[2020-02-13] MEDS ORDERED: LIDOCAINE 5% TOPICAL PATCH TP ONE (20:50)
[2020-02-13] MEDS ORDERED: LIDOCAINE PATCH REMOVAL MC ONE (22:00)
[2020-02-13] MEDS ORDERED: LIDOCAINE 5% TOPICAL PATCH ONE (22:10)
[2020-02-13 23:18] VITALS: BP 129/60; PULSE 83
== END 2020-02-13 23:14 | disposition home or self-care (01) ==
LOC: JER 19:22
DX: S00.03XA Contusion of scalp, initial encounter (principal)
CPT/HCPCS: 70450-TC; 72125-TC; 99284-25

== ENCOUNTER 2020-02-15 17:50 | Emergency (ER) | payer OTHER ==
[2020-02-15 18:15] VITALS: BP 127/62; PULSE 92; TEMP 98; BMI 31.8
[2020-02-15] MEDS ORDERED: SODIUM CHLORIDE 1,000 ML IV STA (20:01)
[2020-02-15] MEDS ORDERED: METOCLOPRAMIDE HCL INJECTION 10 MG/2 ML VIAL IVPB ONE (20:01)
[2020-02-15] MEDS ORDERED: METOCLOPRAMIDE HCL INJECTION 10 MG/2 ML VIAL ONE (20:13)
[2020-02-15 20:22] LABS: BASO % 0.6 % (0-2.0); EOS % 1.7 % (0-4.5); HEMATOCRIT 39.7 % (32.4-45.2); HEMOGLOBIN 13.3 GM/dL (10.7-15.3); LYMPH % 37.2 % (8-40); MCH 28.7 pg (25.7-33.7); MCHC 33.6 g/dl (32.0-36.0); MEAN CELL VOLUME 85.3 fl (80-96); MEAN PLT VOLUME 7.1 fl (7.5-11.1); MONO % 8.6 % (3.8-10.2); NEUT % 51.9 % (42.8-82.8); PLATELET COUNT 367 K/MM3 (134-434); RBC 4.65 M/mm3 (3.60-5.2); RDW 13.4 % (11.6-15.6); WHITE BLOOD COUNT 9.5 K/mm3 (4.0-10.0)
[2020-02-15 20:39] LABS: POTASSIUM 4.3 mmol/L (3.5-5.1)
[2020-02-15 20:41] LABS: ALBUMIN 3.6 g/dl (3.4-5.0); CALCIUM 9.1 mg/dL (8.5-10.1)
[2020-02-15 20:42] LABS: BLOOD UREA NITROGEN 13.9 mg/dL (7-18)
[2020-02-15 20:45] LABS: CREATININE 0.8 mg/dL (0.55-1.3)
[2020-02-15 20:46] LABS: BILIRUBIN,TOTAL 0.2 mg/dL (0.2-1); TOT PROT 7.4 g/dl (6.4-8.2)
== END 2020-02-15 20:56 | disposition left against medical advice (07) ==
LOC: JER 17:50
DX: G44.209 Tension-type headache, unspecified, not intractable (principal)
CPT/HCPCS: 36415; 80053; 84703; 85025; 99283-25

== ENCOUNTER 2020-05-11 16:16 | Emergency (ER) | payer OTHER ==
[2020-05-11 16:24] VITALS: BP 121/67; PULSE 80; TEMP 99.8; BMI 33.1
[2020-05-11] MEDS ORDERED: ONDANSETRON 4 MG/2 ML VIAL IVPUSH ONE (17:07)
[2020-05-11] MEDS ORDERED: FAMOTIDINE 20 MG/50 ML IVPB 20 MG/50 ML MG IVPB ONE ×2 (17:07→18:21)
[2020-05-11] MEDS ORDERED: SODIUM CHLORIDE 1,000 ML IV STA (17:07)
[2020-05-11] MEDS ORDERED: ACETAMINOPHEN 1000 MG/100 ML VIAL (NON FORMULARY) IVPB ONE (17:07)
[2020-05-11] MEDS ORDERED: MAG HYDROX/AL HYDROX/SIMETH 30 ML UNIT-DOSE CUP PO ONE (17:07)
[2020-05-11 18:05] LABS: BASO % 0.6 % (0-2.0); EOS % 1.9 % (0-4.5); HEMATOCRIT 38.1 % (32.4-45.2); HEMOGLOBIN 12.9 GM/dL (10.7-15.3); LYMPH % 34.7 % (8-40); MCH 28.9 pg (25.7-33.7); MCHC 33.8 g/dl (32.0-36.0); MEAN CELL VOLUME 85.6 fl (80-96); MEAN PLT VOLUME 7.7 fl (7.5-11.1); MONO % 9.3 % (3.8-10.2); NEUT % 53.5 % (42.8-82.8); PLATELET COUNT 348 K/MM3 (134-434); RBC 4.45 M/mm3 (3.60-5.2); RDW 14.1 % (11.6-15.6); WHITE BLOOD COUNT 6.8 K/mm3 (4.0-10.0)
[2020-05-11 18:14] LABS: EPI CELLS 26 /uL (0-25.1); HYALINE CASTS 1 /uL (0-3.1); PH,URINE 7.5 (5.0-8.0); URINE APPEARANCE TURBID; URINE BACTERIA 2629 /uL (0-1359); URINE BILIRUBIN NEGATIVE (NEGATIVE); URINE COLOR YELLOW; URINE GLUCOSE (UA) NEGATIVE (NEGATIVE); URINE KETONE 1+ (NEGATIVE); URINE LEUK ESTERASE 2+ (NEGATIVE); URINE NITRITE NEGATIVE (NEGATIVE); URINE PROTEIN NEGATIVE (NEGATIVE); URINE WBC 30 /uL (0-25.8)
[2020-05-11 18:20] LABS: HCG,QUALITATIVE URINE Negative
[2020-05-11] MEDS ORDERED: ACETAMINOPHEN INJECTION 100 ML IVPB ONE (18:20)
[2020-05-11 18:21] LABS: POTASSIUM 4.2 mmol/L (3.5-5.1)
[2020-05-11] MEDS ORDERED: MAG HYDROX/AL HYDROX/SIMETH 30 ML UNIT-DOSE CUP ONE (18:21)
[2020-05-11] MEDS ORDERED: ONDANSETRON 4 MG/2 ML VIAL ONE (18:21)
[2020-05-11 18:23] LABS: ALBUMIN 3.5 g/dl (3.4-5.0); CALCIUM 9.4 mg/dL (8.5-10.1)
[2020-05-11 18:24] LABS: BLOOD UREA NITROGEN 11.4 mg/dL (7-18)
[2020-05-11 18:26] LABS: CREATININE 0.6 mg/dL (0.55-1.3)
[2020-05-11 18:28] LABS: BILIRUBIN,TOTAL 0.2 mg/dL (0.2-1); TOT PROT 7.1 g/dl (6.4-8.2)
[2020-05-11 22:00] LABS: URINE RBC 40 /uL (0-23.9)
== END 2020-05-11 19:28 | disposition home or self-care (01) ==
LOC: JER 16:16
PROC: 3E0333Z Introduction of Anti-inflammatory into Peripheral Vein, Percutaneous Approach (ICD-10-PCS; principal; 2020-05-11)
PROC: 3E033GC Introduction of Other Therapeutic Substance into Peripheral Vein, Percutaneous Approach (ICD-10-PCS; 2020-05-11)
PROC: 3E033GC Introduction of Other Therapeutic Substance into Peripheral Vein, Percutaneous Approach (ICD-10-PCS; 2020-05-11)
PROC: 3E0337Z Introduction of Electrolytic and Water Balance Substance into Peripheral Vein, Percutaneous Approach (ICD-10-PCS; 2020-05-11)
DX: R10.13 Epigastric pain (principal)
CPT/HCPCS: 36415; 76705-TC; 80053; 81003; 83690; 84703; 85025; 87086; 87491; 87591; 99284-25; J0131

== ENCOUNTER 2020-09-28 17:54 | Emergency (ER) | payer OTHER ==
[2020-09-28 18:02] VITALS: BP 100/68; PULSE 83; TEMP 98.9; BMI 28.0
[2020-09-28 19:10] LABS: HCG,QUALITATIVE URINE Negative
[2020-09-28 19:11] LABS: PH,URINE 5.5 (5.0-8.0); URINE APPEARANCE CLEAR; URINE BILIRUBIN NEGATIVE (NEGATIVE); URINE COLOR YELLOW; URINE GLUCOSE (UA) NEGATIVE (NEGATIVE); URINE KETONE NEGATIVE (NEGATIVE); URINE LEUK ESTERASE NEGATIVE (NEGATIVE); URINE NITRITE NEGATIVE (NEGATIVE); URINE PROTEIN NEGATIVE (NEGATIVE); URINE UROBILINOGEN 0.2 mg/dL (0.2-1.0)
== END 2020-09-28 23:01 | disposition home or self-care (01) ==
LOC: JERFT 17:54 → JER 17:54 → JERFT 23:01
DX: N76.0 Acute vaginitis (principal)
CPT/HCPCS: 36415; 76830-TC; 81003; 84703; 87070; 87086; 87205; 87491; 87591; 99284-25

== ENCOUNTER 2020-10-14 15:53 | Emergency (ER) | payer OTHER ==
[2020-10-14 16:01] VITALS: BP 131/70; PULSE 75; TEMP 99; BMI 27.6
[2020-10-14] MEDS ORDERED: SODIUM CHLORIDE 0.9% 500 ML INFUS.BAG IV ONE (17:10)
[2020-10-14 19:02] LABS: BASO % 0.5 % (0-2.0); EOS % 1.9 % (0-4.5); HEMATOCRIT 38.2 % (32.4-45.2); HEMOGLOBIN 13.3 GM/dL (10.7-15.3); LYMPH % 33.8 % (8-40); MCH 29.9 pg (25.7-33.7); MCHC 34.9 g/dl (32.0-36.0); MEAN CELL VOLUME 85.7 fl (80-96); MEAN PLT VOLUME 7.3 fl (7.5-11.1); MONO % 6.9 % (3.8-10.2); NEUT % 56.9 % (42.8-82.8); PLATELET COUNT 324 10^3/uL (134-434); RBC 4.45 M/mm3 (3.60-5.2); RDW 13.6 % (11.6-15.6); WHITE BLOOD COUNT 7.9 K/mm3 (4.0-10.0)
[2020-10-14 19:19] LABS: CHLORIDE 108 mmol/L (98-107); SODIUM 139 mmol/L (136-145)
[2020-10-14 19:21] LABS: CALCIUM 8.4 mg/dL (8.5-10.1)
[2020-10-14 19:22] LABS: ALBUMIN 3.6 g/dl (3.4-5.0); ANION GAP 7 MMOL/L (8-16); BLOOD UREA NITROGEN 16.3 mg/dL (7-18); CO2 25 mmol/L (21-32); GLUCOSE,RANDOM 85 mg/dL (74-106); LIPASE 159 U/L (73-393); MAGNESIUM 2.2 mg/dL (1.8-2.4)
[2020-10-14 19:24] LABS: SGPT/ALT 18 U/L (13-61)
[2020-10-14 19:25] LABS: CREATININE 0.6 mg/dL (0.55-1.3); SGOT/AST 11 U/L (15-37)
[2020-10-14 19:26] LABS: BILIRUBIN,TOTAL 0.3 mg/dL (0.2-1); TOT PROT 7.2 g/dl (6.4-8.2)
[2020-10-14 19:27] LABS: ALK PHOS 82 U/L (45-117)
== END 2020-10-14 20:02 | disposition home or self-care (01) ==
LOC: JER 15:53
DX: R07.9 Chest pain, unspecified (principal)
CPT/HCPCS: 36415; 71046-TC-FY; 80053; 82550; 83690; 83735; 84484; 85025; 93005; 93010; 99285-25

== ENCOUNTER 2021-01-25 15:46 | Emergency (ER) | payer OTHER ==
[2021-01-25 16:14] VITALS: BP 105/56; PULSE 70; TEMP 98; BMI 25.7
== END 2021-01-25 17:02 | disposition home or self-care (01) ==
LOC: JER 15:46
DX: M79.604 Pain in right leg (principal)
CPT/HCPCS: 99281-25

== ENCOUNTER 2021-04-24 13:11 | Emergency (ER) | payer OTHER ==
[2021-04-24 13:25] VITALS: TEMP 98; BMI 25.1
[2021-04-24] MEDS ORDERED: SODIUM CHLORIDE 1,000 ML IV STA (14:02)
[2021-04-24] MEDS ORDERED: ACETAMINOPHEN 1000 MG/100 ML BAG IVPB ONE (14:02)
[2021-04-24] MEDS ORDERED: ACETAMINOPHEN INJECTION 100 ML IVPB ONE (14:18)
[2021-04-24 15:36] LABS: BASO % 0.3 % (0-2.0); EOS % 0.8 % (0-4.5); HEMATOCRIT 36.9 % (32.4-45.2); HEMOGLOBIN 12.8 GM/dL (10.7-15.3); LYMPH % 32.5 % (8-40); MCHC 34.5 g/dl (32.0-36.0); MEAN PLT VOLUME 7.2 fl (7.5-11.1); NEUT % 60.4 % (42.8-82.8); PLATELET COUNT 294 10^3/uL (134-434); RBC 4.25 M/mm3 (3.60-5.2); RDW 13.4 % (11.6-15.6); WHITE BLOOD COUNT 6.6 K/mm3 (4.0-10.0)
[2021-04-24 15:43] LABS: EPI CELLS 9 /uL (0-25.1); HYALINE CASTS 1 /uL (0-3.1); URINE APPEARANCE CLEAR; URINE BACTERIA 111 /uL (0-1359); URINE BILIRUBIN NEGATIVE (NEGATIVE); URINE COLOR YELLOW; URINE GLUCOSE (UA) NEGATIVE (NEGATIVE); URINE KETONE NEGATIVE (NEGATIVE); URINE LEUK ESTERASE NEGATIVE (NEGATIVE); URINE NITRITE NEGATIVE (NEGATIVE); URINE PROTEIN NEGATIVE (NEGATIVE); URINE RBC 33 /uL (0-23.9); URINE UROBILINOGEN 0.2 mg/dL (0.2-1.0); URINE WBC 9 /uL (0-25.8)
[2021-04-24 16:00] LABS: HCG,QUALITATIVE URINE Negative
[2021-04-24 16:33] LABS: BLOOD UREA NITROGEN 12.2 mg/dL (7-18); CALCIUM 8.8 mg/dL (8.5-10.1)
[2021-04-24 16:34] LABS: ALBUMIN 3.5 g/dl (3.4-5.0)
[2021-04-24 16:37] LABS: CREATININE 0.5 mg/dL (0.55-1.3)
[2021-04-24 16:38] LABS: BILIRUBIN,TOTAL 0.5 mg/dL (0.2-1); TOT PROT 6.8 g/dl (6.4-8.2)
[2021-04-24 18:55] VITALS: BP 110/65; PULSE 75
== END 2021-04-24 18:55 | disposition home or self-care (01) ==
LOC: JER 13:11
PROC: 3E0333Z Introduction of Anti-inflammatory into Peripheral Vein, Percutaneous Approach (ICD-10-PCS; principal; 2021-04-24)
PROC: 3E0337Z Introduction of Electrolytic and Water Balance Substance into Peripheral Vein, Percutaneous Approach (ICD-10-PCS; 2021-04-24)
DX: R10.9 Unspecified abdominal pain (principal); K59.00 Constipation, unspecified
CPT/HCPCS: 36415; 74176-TC; 80053; 81003; 83690; 84703; 85025; 87086; 96361; 96374; 99284-25

== ENCOUNTER 2021-12-14 10:17 | Emergency (ER) | payer OTHER ==
[2021-12-14 10:33] VITALS: BP 118/56; PULSE 79; RESP 18; TEMP 98.7; BMI 26.5
== END 2021-12-14 13:11 | disposition home or self-care (01) ==
LOC: JER 10:17
DX: U07.1 COVID-19 (principal)
CPT/HCPCS: 0241U-QW; 99283-25

== ENCOUNTER 2022-03-23 09:23 | Emergency (ER) | payer OTHER ==
[2022-03-23 09:45] VITALS: BP 109/69; PULSE 64; RESP 20; TEMP 97.9; BMI 26.5
[2022-03-23] MEDS ORDERED: SODIUM CHLORIDE 0.9% 500 ML INFUS.BAG IV ONE (11:01)
[2022-03-23] MEDS ORDERED: ACETAMINOPHEN 1000 MG/100 ML BAG IVPB ONE (11:01)
[2022-03-23] MEDS ORDERED: ACETAMINOPHEN INJECTION 100 ML IVPB ONE (11:14)
[2022-03-23 12:11] LABS: BASO % 0.7 % (0-2.0); EOS % 2.9 % (0-4.5); HEMATOCRIT 39.3 % (32.4-45.2); HEMOGLOBIN 13.2 GM/dL (10.7-15.3); LYMPH % 41.4 % (8-40); MCH 29.7 pg (25.7-33.7); MCHC 33.5 g/dl (32.0-36.0); MEAN CELL VOLUME 88.6 fl (80-96); MEAN PLT VOLUME 7.4 fl (7.5-11.1); MONO % 7.9 % (3.8-10.2); NEUT % 47.1 % (42.8-82.8); PLATELET COUNT 329 10^3/uL (134-434); RBC 4.43 M/mm3 (3.60-5.2); RDW 13.9 % (11.6-15.6); WHITE BLOOD COUNT 4.7 K/mm3 (4.0-10.0)
[2022-03-23 12:17] LABS: EPI CELLS >36 /uL (0-25.1); HYALINE CASTS 2 /uL (0-3.1); PH,URINE 5.5 (5.0-8.0); URINE APPEARANCE CLOUDY; URINE BACTERIA 354 /uL (0-1359); URINE BILIRUBIN NEGATIVE (NEGATIVE); URINE COLOR YELLOW; URINE GLUCOSE (UA) NEGATIVE (NEGATIVE); URINE KETONE NEGATIVE (NEGATIVE); URINE LEUK ESTERASE TRACE (NEGATIVE); URINE NITRITE NEGATIVE (NEGATIVE); URINE PROTEIN TRACE (NEGATIVE); URINE RBC 64 /uL (0-23.9); URINE UROBILINOGEN 0.2 mg/dL (0.2-1.0); URINE WBC 57 /uL (0-25.8)
[2022-03-23 12:30] LABS: BLOOD UREA NITROGEN 12.8 mg/dL (7-18)
[2022-03-23 12:33] LABS: ALBUMIN 3.5 g/dl (3.4-5.0); CALCIUM 8.8 mg/dL (8.5-10.1); CREATININE 0.5 mg/dL (0.55-1.3)
[2022-03-23 12:36] LABS: BILIRUBIN,TOTAL 0.3 mg/dL (0.2-1); TOT PROT 6.9 g/dl (6.4-8.2)
== END 2022-03-23 14:43 | disposition home or self-care (01) ==
LOC: JER 09:23
PROC: 3E0333Z Introduction of Anti-inflammatory into Peripheral Vein, Percutaneous Approach (ICD-10-PCS; principal; 2022-03-23)
DX: K57.30 Diverticulosis of large intestine without perforation or abscess without bleeding (principal); K59.09 Other constipation
CPT/HCPCS: 36415; 74176-TC; 80053; 81003; 83690; 84703; 85025; 87086; 99284-25

== ENCOUNTER 2023-03-27 09:01 | Emergency (ER) | payer OTHER ==
[2023-03-27 09:18] VITALS: BP 101/49; PULSE 79; RESP 16; TEMP 97.8; BMI 29.9
[2023-03-27] MEDS ORDERED: IBUPROFEN 600 MG TABLET (FP) PO ONE ×2 (10:03→10:18)
== END 2023-03-27 12:06 | disposition home or self-care (01) ==
LOC: JERFT 09:01 → JER 09:01 → JERFT 12:06
DX: M25.572 Pain in left ankle and joints of left foot (principal); M25.552 Pain in left hip; R22.42 Localized swelling, mass and lump, left lower limb; W18.39XA Other fall on same level, initial encounter
CPT/HCPCS: 73502-TC-LT-FY; 73610-TC-LT-FY; 73630-TC-LT; 99284-25

== ENCOUNTER 2024-01-02 10:09 | Emergency (ER) | payer OTHER ==
[2024-01-02 10:30] VITALS: BP 119/67; PULSE 78; RESP 17; TEMP 98.9; BMI 30.1
[2024-01-02] MEDS ORDERED: KETOROLAC TROMETHAMINE 30 MG/1 ML VIAL ONE (11:30)
[2024-01-02] MEDS ORDERED: ACETAMINOPHEN INJECTION 100 ML ONE (11:48)
[2024-01-02] MEDS: ACETAMINOPHEN 1000 MG/100 ML BAG IVPB ONE (11:53)
[2024-01-02] MEDS: KETOROLAC TROMETHAMINE 30 MG/1 ML VIAL IVPUSH ONE (12:03)
[2024-01-02 12:25] LABS: BASO % 0.4 % (0-2.0); EOS % 2.5 % (0-4.5); HEMATOCRIT 38.2 % (32.4-45.2); HEMOGLOBIN 13.3 GM/dL (10.7-15.3); LYMPH % 24.3 % (8-40); MCH 29.8 pg (25.7-33.7); MCHC 34.8 g/dl (32.0-36.0); MEAN CELL VOLUME 85.6 fl (80-96); MEAN PLT VOLUME 7.3 fl (7.5-11.1); NEUT % 65.8 % (42.8-82.8); PLATELET COUNT 340 10^3/uL (134-434); RBC 4.46 M/mm3 (3.60-5.2); RDW 13.4 % (11.6-15.6); WHITE BLOOD COUNT 8.3 K/mm3 (4.0-10.0)
[2024-01-02 12:49] LABS: CALCIUM 8.7 mg/dL (8.5-10.1)
[2024-01-02 12:51] LABS: BLOOD UREA NITROGEN 13.1 mg/dL (7-18)
[2024-01-02 12:54] LABS: CREATININE 0.6 mg/dL (0.55-1.3)
== END 2024-01-02 12:53 | disposition home or self-care (01) ==
LOC: JERFT 10:09
PROC: 3E033NZ Introduction of Analgesics, Hypnotics, Sedatives into Peripheral Vein, Percutaneous Approach (ICD-10-PCS; principal; 2024-01-02)
DX: K04.7 Periapical abscess without sinus (principal); M54.2 Cervicalgia; R51.9 Headache, unspecified; R50.9 Fever, unspecified
CPT/HCPCS: 36415; 80048; 84703; 85025; 99284-25; J0131

== ENCOUNTER 2024-06-28 09:41 | Emergency (ER) | payer OTHER ==
[2024-06-28 09:53] VITALS: TEMP 99; BMI 30.1
[2024-06-28 11:16] LABS: HEMOGLOBIN 13.3 g/dL (11.2-15.7); MCHC 33.3 g/dl (32.2-35.5); MEAN CELL VOLUME 86.2 fl (79.4-94.8); MEAN PLT VOLUME 9.1 fl (9.4-12.3); PLATELET COUNT 355 x10^3/uL (182-369); RDW 13.3 % (12.2-17.1)
[2024-06-28 11:18] LABS: PH,URINE 5.5 (5.0-8.0); URINE APPEARANCE CLEAR; URINE BILIRUBIN NEGATIVE (NEGATIVE); URINE COLOR YELLOW; URINE GLUCOSE (UA) NEGATIVE (NEGATIVE); URINE KETONE TRACE (NEGATIVE); URINE LEUK ESTERASE NEGATIVE (NEGATIVE); URINE NITRITE NEGATIVE (NEGATIVE); URINE PROTEIN NEGATIVE (NEGATIVE)
[2024-06-28 11:35] LABS: POTASSIUM 4.3 mmol/L (3.5-5.1)
[2024-06-28 11:39] LABS: CALCIUM 9.1 mg/dL (8.5-10.1)
[2024-06-28] MEDS ORDERED: ACETAMINOPHEN 325 MG TABLET (FP) ONE (11:39)
[2024-06-28 11:40] LABS: ALBUMIN 3.6 g/dl (3.4-5.0)
[2024-06-28 11:43] LABS: CREATININE 0.6 mg/dL (0.55-1.3)
[2024-06-28 11:44] LABS: BILIRUBIN,TOTAL 0.4 mg/dL (0.2-1); TOT PROT 7.4 g/dl (6.4-8.2)
[2024-06-28] MEDS: ACETAMINOPHEN 500 MG TABLET (FP) PO ONE (11:49)
[2024-06-28 13:42] VITALS: BP 122/71; PULSE 63; RESP 20
[2024-06-28] MEDS ORDERED: CLINDAMYCIN HCL 150 MG CAPSULE (FP) ONE (13:51)
[2024-06-28] MEDS: CLINDAMYCIN HCL 150 MG CAPSULE (FP) PO ONE (14:07)
== END 2024-06-28 14:07 | disposition home or self-care (01) ==
LOC: JER 09:41
DX: R10.2 Pelvic and perineal pain (principal); R10.30 Lower abdominal pain, unspecified; N89.8 Other specified noninflammatory disorders of vagina; R11.2 Nausea with vomiting, unspecified; R68.83 Chills (without fever)
CPT/HCPCS: 36415; 76830-TC; 80053; 81003; 84439; 84443; 85027; 87070; 87086; 87205; 99284-25